=== PATIENT | male | born 1945 | race Caucasian/White ===

== ENCOUNTER 2016-06-15 10:39 | Emergency (ER) | payer MEDICARE ==
[2016-06-15] MEDS ORDERED: HYDROmorphone INJ* 1 MG/ML CARPUJECT SYRINGE ONE (12:07)
[2016-06-15] MEDS ORDERED: Ketorolac INJ* 30 MG/ML 1 ML VIAL ONE (12:07)
[2016-06-15] MEDS ORDERED: NS 0.9% 1000 ML* 1,000 ML IV ONE (12:25)
[2016-06-15] MEDS ORDERED: Ondansetron INJ* 2 MG/ML VIAL IV ONE (12:28)
[2016-06-15] MEDS ORDERED: HYDROmorphone INJ* 1 MG/ML CARPUJECT SYRINGE IV SLOW PU ONE ×2 (12:31→16:20)
[2016-06-15] MEDS ORDERED: Ketorolac INJ* 30 MG/ML 1 ML VIAL IV PUSH ONE (12:32)
[2016-06-15 12:38] LABS: Hematocrit 45 % (42-52); Mean Corpuscular HGB Conc 33 g/dl (31-36); Mean Corpuscular Hemoglobin 27 pg (27-31); Mean Corpuscular Volume 81 fL (80-94); Mean Platelet Volume 10 um3 (7.4-10.4); Red Blood Count 5.62 10^6/ul (4.0-5.4); Red Cell Distribution Width 14 % (10.5-15); White Blood Count 11.8 10^3/ul (3.5-10.8)
[2016-06-15 12:48] LABS: Urine Bacteria Absent (Absent); Urine Bilirubin Negative (Negative); Urine Glucose Negative (Negative); Urine Nitrite Negative (Negative)
[2016-06-15 12:50] LABS: Albumin 4.5 g/dL (3.2-5.2); BUN/Creatinine Ratio 26.2 (8-20); C Reactive Protein 75.37 mg/L (< 5.00); Calcium 10.1 mg/dL (8.6-10.3); EGFR African American 75.7 (>60); EGFR Non-African American 58.9 (>60); Globulin 3.6 g/dL (2-4); Magnesium 2.2 mg/dL (1.9-2.7); Potassium 4.1 mmol/L (3.5-5.0); Total Bilirubin 0.9 mg/dL (0.2-1.0); Total Protein 8.1 g/dL (6.4-8.9)
--- NOTE | 2016-06-15 13:42 | RAD ---
Indication: Left flank pain. CT of the abdomen and pelvis was performed without oral and IV contrast administration. Coronal and sagittal images were Moderate degree of left hydronephrosis and hydroureter noted. There are 2 calculi in the distal left ureter just at the ureterovesicular junction measuring 5 mm. More proximally is an additional distal ureteral stone measuring approximately 5 mm. Multiple parapelvic cysts are noted in the kidneys. Nonobstructing calculi are noted in the left kidney. These are located within the calyces. The lung bases demonstrate no pleural fluid, nodules or masses. Heart is of normal size without evidence of pericardial effusion. Liver is normal in size. Multiple low density lesions are noted in the left lobe of liver in the right lobe of liver. No intrahepatic duct dilatation is noted. The gallbladder demonstrates no calcified gallstones. No pericholecystic fluid or wall thickening. The spleen is normal in size no acute lesions are noted. The pancreas demonstrates no mass or pancreatic duct dilatation. Dilated loops of bowel are noted. The colon is filled with stool. CT of the pelvis demonstrates urinary bladder to be unremarkable. Marked enlargement of the prostate is noted. Seminal vesicles are unremarkable. No hernias are noted. IMPRESSION: THERE IS LEFT HYDRONEPHROSIS AND HYDROURETER. THERE ARE 2 CALCULI IN THE DISTAL LEFT URETER 1 AT THE URETEROVESICULAR JUNCTION MEASURING 5 MM AND ANOTHER ONE MORE PROXIMALLY MEASURING 5 MM. MULTIPLE PARAPELVIC RENAL CYSTS AND NONOBSTRUCTING CALCULUS OF THE LEFT KIDNEY IS NOTED. FINDINGS ARE NEW SINCE PREVIOUS EXAM OF 06/10/2016.
--- NOTE | 2016-06-15 17:26 | ED ---
Back Pain - HPI Summary HPI Summary: Patient arrives from Dr. Gill's office with complaint of worsening flank pain on left side. States pain has been present for 4 days. Now worsening and unbearable states it is 10/10. Known kidney stone per Dr Gill and now coming to ED for pain control and CT to show location of stones. Denies taking any medication at home and feels he has not passed the stones. No fever, JO, other other pain. Pain is localized to the flank area with radiation into the groin. Has not felt ill otherwise. - History of Current Complaint Chief Complaint: EDFlankPain Stated Complaint: LT SIDE FLANK PAIN Hx Obtained From: Patient Onset/Duration: Gradual Onset Onset/Duration: Started Days Ago Timing: Constant Back Pain Location: Is Discrete @ - left flank radiating to l groin - no abdominal pain Severity Initially: Moderate Severity Currently: Severe Pain Intensity: 10 Pain Scale Used: 0-10 Numeric Character: Sharp Aggravating Symptom(s): Movement Alleviating Symptom(s): Rest, Position Associated Signs And Symptoms: Positive: Flank Pain Related History: Similar Episode Dx As - previous kidney stones - Risk Factors AAA Risk Factors: Negative TAD Risk Factors: Negative Cauda Equina Risk Factors: Negative Epidural Abscess Risk Factors: Negative - Allergies/Home Medications Allergies/Adverse Reactions: Allergies Allergy/AdvReac Type Severity Reaction Status Date / Time Statins Allergy Joint Pain Verified 06/15/16 10:52 PMH/Surg Hx/FS Hx/Imm Hx Previously Healthy: Yes - Surgical History Surgery Procedure, Year, and Place: KNEE,SHOULDER Infectious Disease History: No Infectious Disease History: Denies: Traveled Outside the [place] in Last 30 Days - Social History Occupation: Unemployed Lives: With Family Alcohol Use: None Substance Use Type: Reports: None Smoking Status (MU): Former Smoker Review of Systems Constitutional: Negative Eyes: Negative Cardiovascular: Negative Respiratory: Negative Positive: Nausea Positive: flank pain, hematuria, pain Musculoskeletal: Negative Skin: Negative Neurological: Negative Psychological: Normal All Other Systems Reviewed And Are Negative: Yes Physical Exam Triage Information Reviewed: Yes Vital Signs On Initial Exam: Initial Vitals Temp Pulse Resp BP Pulse Ox 99.6 F 103 18 179/79 100 06/15/16 10:52 06/15/16 10:52 06/15/16 10:52 06/15/16 10:52 06/15/16 10:52 Vital Signs Reviewed: Yes Appearance: Positive: Well-Appearing, No Pain Distress, Well-Nourished Skin: Positive: Warm, Dry Head/Face: Positive: Normal Head/Face Inspection Eyes: Positive: Normal, EOMI, LINK ENT: Positive: Hearing grossly normal Neck: Positive: Supple, Nontender, No Lymphadenopathy Respiratory/Lung Sounds: Positive: Clear to Auscultation, Breath Sounds Present Cardiovascular: Positive: Normal Abdomen Description: Positive: Soft, CVA Tenderness (L) Bowel Sounds: Positive: Present Musculoskeletal: Positive: Normal, Strength/ROM Intact Neurological: Positive: Normal Psychiatric: Positive: Normal AVPU Assessment: Alert Diagnostics - Vital Signs Vital Signs Temp Pulse Resp BP Pulse Ox 06/15/16 16:34 16 06/15/16 16:00 145/80 06/15/16 15:30 83 131/73 96 06/15/16 15:00 79 118/66 96 06/15/16 14:30 81 125/65 96 06/15/16 14:00 88 129/70 96 06/15/16 13:30 87 132/70 96 06/15/16 13:00 86 94 06/15/16 12:37 16 06/15/16 12:30 134/79 06/15/16 12:00 95 180/92 99 06/15/16 11:33 95 98 06/15/16 11:32 168/98 06/15/16 10:52 99.6 F 103 18 179/79 100 - Laboratory Lab Results: Lab Results 06/15/16 06/15/16 06/15/16 Range/Units 11:37 11:37 11:37 WBC 11.8 H (3.5-10.8) 10^3/ul RBC 5.62 H (4.0-5.4) 10^6/ul Hgb 15.0 (14.0-18.0) g/dl Hct 45 (42-52) % MCV 81 (80-94) fL MCH 27 (27-31) pg MCHC 33 (31-36) g/dl RDW 14 (10.5-15) % Plt Count 135 L (150-450) 10^3/ul MPV 10 (7.4-10.4) um3 Neut % (Auto) 81.8 (38-83) % Lymph % (Auto) 11.4 L (25-47) % [place] % (Auto) 6.5 (1-9) % Eos % (Auto) 0 (0-6) % Baso % (Auto) 0.3 (0-2) % Absolute Neuts (auto) 9.7 H (1.5-7.7) 10^3/ul Absolute Lymphs (auto) 1.3 (1.0-4.8) 10^3/ul Absolute Monos (auto) 0.8 (0-0.8) 10^3/ul Absolute Eos (auto) 0 (0-0.6) 10^3/ul Absolute Basos (auto) 0 (0-0.2) 10^3/ul Absolute Nucleated RBC 0.01 10^3/ul Nucleated RBC % 0 Sodium 139 (133-145) mmol/L Potassium 4.1 (3.5-5.0) mmol/L Chloride 104 (101-111) mmol/L Carbon Dioxide 25 (22-32) mmol/L Anion Gap 10 (2-11) mmol/L BUN 32 H (6-24) mg/dL Creatinine 1.22 H (0.67-1.17) mg/dL Est GFR ( Amer) 75.7 (>60) Est GFR (Non-Af Amer) 58.9 (>60) BUN/Creatinine Ratio 26.2 H (8-20) Glucose 118 H (70-100) mg/dL Lactic Acid (0.5-2.0) mmol/L Calcium 10.1 (8.6-10.3) mg/dL Magnesium 2.2 (1.9-2.7) mg/dL Total Bilirubin 0.90 (0.2-1.0) mg/dL AST 20 (13-39) U/L ALT 18 (7-52) U/L Alkaline Phosphatase 61 (34-104) U/L Total Creatine Kinase 147 (10-223) U/L C-Reactive Protein 75.37 H (< 5.00) mg/L Total Protein 8.1 (6.4-8.9) g/dL Albumin 4.5 (3.2-5.2) g/dL Globulin 3.6 (2-4) g/dL Albumin/Globulin Ratio 1.3 (1-3) Lipase 23 (11.0-82.0) U/L Urine Color Red A Urine Appearance Cloudy Urine pH 7.0 (5-9) Ur Specific [place] 1.019 (1.010-1.030) Urine Protein 2+(100 mg/dl) H (Negative) Urine Ketones 1+ H (Negative) Urine Blood 3+ H (Negative) Urine Nitrate Negative (Negative) Urine Bilirubin Negative (Negative) Urine Urobilinogen Negative (Negative) Ur Leukocyte Esterase Negative (Negative) Urine WBC (Auto) Absent (Absent) Urine RBC (Auto) 3+(>10/hpf) H (Absent) Urine Bacteria Absent (Absent) Urine Glucose Negative (Negative) Urine Ascorbic Acid * H (Negative) 06/15/16 Range/Units 11:37 WBC (3.5-10.8) 10^3/ul RBC (4.0-5.4) 10^6/ul Hgb (14.0-18.0) g/dl Hct (42-52) % MCV (80-94) fL MCH (27-31) pg MCHC (31-36) g/dl RDW (10.5-15) % Plt Count (150-450) 10^3/ul MPV (7.4-10.4) um3 Neut % (Auto) (38-83) % Lymph % (Auto) (25-47) % Scre[place] % (Auto) (1-9) % Eos % (Auto) (0-6) % Baso % (Auto) (0-2) % Absolute Neuts (auto) (1.5-7.7) 10^3/ul Absolute Lymphs (auto) (1.0-4.8) 10^3/ul Absolute Monos (auto) (0-0.8) 10^3/ul Absolute Eos (auto) (0-0.6) 10^3/ul Absolute Basos (auto) (0-0.2) 10^3/ul Absolute Nucleated RBC 10^3/ul Nucleated RBC % Sodium (133-145) mmol/L Potassium (3.5-5.0) mmol/L Chloride (101-111) mmol/L Carbon Dioxide (22-32) mmol/L Anion Gap (2-11) mmol/L BUN (6-24) mg/dL Creatinine (0.67-1.17) mg/dL Est GFR ( Amer) (>60) Est GFR (Non-Af Amer) (>60) BUN/Creatinine Ratio (8-20) Glucose (70-100) mg/dL Lactic Acid 2.2 H* (0.5-2.0) mmol/L Calcium (8.6-10.3) mg/dL Magnesium (1.9-2.7) mg/dL Total Bilirubin (0.2-1.0) mg/dL AST (13-39) U/L ALT (7-52) U/L Alkaline Phosphatase (34-104) U/L Total Creatine Kinase (10-223) U/L C-Reactive Protein (< 5.00) mg/L Total Protein (6.4-8.9) g/dL Albumin (3.2-5.2) g/dL Globulin (2-4) g/dL Albumin/Globulin Ratio (1-3) Lipase (11.0-82.0) U/L Urine Color Urine Appearance Urine pH (5-9) Ur Specific [place] (1.010-1.030) Urine Protein (Negative) Urine Ketones (Negative) Urine Blood (Negative) Urine Nitrate (Negative) Urine Bilirubin (Negative) Urine Urobilinogen (Negative) Ur Leukocyte Esterase (Negative) Urine WBC (Auto) (Absent) Urine RBC (Auto) (Absent) Urine Bacteria (Absent) Urine Glucose (Negative) Urine Ascorbic Acid (Negative) Result Diagrams: 06/15/16 11:37 06/15/16 11:37 Lab Statement: Any lab studies that have been ordered have been reviewed, and results considered in the medical decision making process. - CT No standard instances CT Interpretation: Positive (See Comments) - 2 5mm stones - see CT results CT Interpretation Completed By: Radiologist Back Pain Course/Dx - Course Course Of Treatment: Dilaudid and toradol. Patient sent to CT. Shows two 5mm stones. Dr Gill consulted. Patient decision if want surgery or home with pain management until passage of stones. Patient agrees to home and pain management. Prior to leaving, pain at 10/10 again and given another 1mg of dilaudid. Pt stable at time of discharge. Will follow up with Dr Gill Assessment/Plan: Follow up with Dr. Gill - Diagnoses Provider Diagnoses: Kidney stone on left side Discharge - Discharge Plan Condition: Stable Disposition: HOME Prescriptions: Tamsulosin CAP* [Flomax CAP*] 0.4 mg PO DAILY #20 cap oxyCODONE/Acetamin 10/325(NF) [Percocet 10/325 (NF)] 1 tab PO Q6HR #20 tab MDD 4 Patient Education Materials: Kidney Stones (ED) Referrals: Sil Frederick MD [Primary Care Provider] - Brendan Gill MD [Medical Doctor] - Additional Instructions: Strain urine until you see both stones pass. Flomax once daily. Percoset as needed for pain Follow up with Dr Gill if symptoms persist or fail to improve. Come back to ED if fever develops, shortness of breath, JO or worsening pain not controlled with outpatient medication.
[2016-06-15 17:48] VITALS: BP 142/71
== END 2016-06-15 17:35 | disposition home or self-care (01) ==
LOC: ED 10:39
DX: N20.0 Calculus of kidney (principal); Z87.891 Personal history of nicotine dependence; Z87.442 Personal history of urinary calculi
CPT/HCPCS: 36415; 74176; 80053; 81003; 81015; 82550; 83605; 83690; 83735; 85025; 86140; 87040; 96360; 96365; 96374; 96375; 99283; J1170; J1885; J2405

== ENCOUNTER 2016-06-16 19:56 | Observation (INO) | payer MEDICARE ==
[2016-06-16] MEDS ORDERED: NS 0.9% 1000 ML* 1,000 ML IV ONE (20:41)
[2016-06-16] MEDS ORDERED: Ondansetron INJ* 2 MG/ML VIAL IV ONE (20:41)
[2016-06-16] MEDS ORDERED: fentaNYL* 50 MCG/ML 2 ML VIAL (100 MCG VIAL) IV ONE (20:41)
[2016-06-16 20:47] LABS: Hematocrit 40 % (42-52); Hemoglobin 12.9 g/dl (14.0-18.0); Mean Corpuscular HGB Conc 33 g/dl (31-36); Mean Corpuscular Hemoglobin 26 pg (27-31); Mean Corpuscular Volume 81 fL (80-94); Mean Platelet Volume 9 um3 (7.4-10.4); Red Blood Count 4.88 10^6/ul (4.0-5.4); Red Cell Distribution Width 14 % (10.5-15); White Blood Count 10.7 10^3/ul (3.5-10.8)
[2016-06-16 21:02] LABS: Albumin 4.1 g/dL (3.2-5.2); C Reactive Protein 83.95 mg/L (< 5.00); Calcium 9.4 mg/dL (8.6-10.3); EGFR Non-African American 55.2 (>60); Globulin 3.4 g/dL (2-4); Potassium 3.8 mmol/L (3.5-5.0); Total Bilirubin 0.6 mg/dL (0.2-1.0); Total Protein 7.5 g/dL (6.4-8.9)
--- NOTE | 2016-06-16 21:07 | RAD ---
Indication: LEFT flank pain. History of kidney stones. Obstructive uropathy traced to distal LEFT ureteral and ureterovesicular junction stones on CT of one day prior. Comparison: June 15, 2016 CT. Technique: Supine abdomen. Report: Large body habitus and bowel contents limits assessment. Vascular calcifications visualized at the bilateral kidneys. No definitive renal collecting system stones or suspicious calcifications along the course of the ureters evident even with correlation to the CT of one day prior. Mild gas distention of the colon. No dilated small bowel loops evident. Unremarkable soft tissue contours. IMPRESSION: Limited assessment due to large body habitus and bowel contents without conspicuous urolithiasis despite correlation with CT of one day prior.
[2016-06-16] MEDS ORDERED: fentaNYL* 50 MCG/ML 2 ML VIAL (100 MCG VIAL) IV SLOW PU ONE (21:17)
[2016-06-16 21:39] LABS: Urine Bacteria 1+ (Absent); Urine Bilirubin Negative (Negative); Urine Glucose Negative (Negative); Urine Nitrite Negative (Negative)
[2016-06-16] MEDS ORDERED: HYDROmorphone INJ* 1 MG/ML CARPUJECT SYRINGE IV SLOW PU ONE ×2 (21:48→23:36)
[2016-06-16] MEDS ORDERED: cefTRIAXone VIAL(*) 1,000 MG in NS 0.9% 50 ML* 50 ML IVPB ONE ×2 (21:49→22:07)
[2016-06-16] MEDS ORDERED: Gentamicin ADULT (*) 180 MG in NS 0.9% 100 ML* 100 ML IVPB ONE (22:06)
--- NOTE | 2016-06-16 22:16 | ED ---
Mike Dalton Anna, scribed for Zane Ricardo MD on 06/16/16 at 2048 . GI/ HPI - HPI Summary HPI Summary: Patient is a 70 y/o male coming to [facility] presenting with constant worsening left -sided flank pain that began five days ago. He describes the severity of the pain as 10/10 and worse than yesterday. He has experienced nausea and has seen blood in his urine. Denies vomiting. He was seen yesterday in the ED for the same symptoms and had a CT which revealed two renal calculi. The pain is not alleviated by Percocet. - History of Current Complaint Chief Complaint: EDFlankPain Time Seen by Provider: 06/16/16 20:40 Stated Complaint: POSSIBLE KIDNEY STONE Hx Obtained From: Patient Onset/Duration: Started Days Ago, Still Present, Worse Since - today Timing: Constant Severity: Moderate Current Severity: Moderate Pain Intensity: 10 Associated Signs and Symptoms: Positive: Nausea - Allergy/Home Medications Allergies/Adverse Reactions: Allergies Allergy/AdvReac Type Severity Reaction Status Date / Time Statins Allergy Joint Pain Verified 06/15/16 10:52 PMH/Surg Hx/FS Hx/Imm Hx Previously Healthy: No Cardiovascular History: Reports: Hx Hypertension History: Reports: Hx Benign Prostatic Hyperplasia, Hx Kidney Stones - Surgical History Surgery Procedure, Year, and Place: BILATERAL KNEES,SHOULDER Infectious Disease History: No Infectious Disease History: Denies: Traveled Outside the [place] in Last 30 Days - Family History Known Family History: Negative: Cardiac Disease, Hypertension, Diabetes - Social History Occupation: Retired Lives: With Family Alcohol Use: None Substance Use Type: Reports: None Smoking Status (MU): Former Smoker Review of Systems Positive: Nausea Positive: flank pain, hematuria All Other Systems Reviewed And Are Negative: Yes Physical Exam - Summary Physical Exam Summary: VITAL SIGNS: Reviewed. GENERAL: Patient is a well developed and nourished male who is lying comfortable in the stretcher. Patient is not in any acute respiratory distress. HEAD AND FACE: Normocephalic and atraumatic. EYES: PERRLA, EOMI x 2, No injected conjunctiva. EARS: Hearing grossly intact. Ear canals and tympanic membranes are WNL. MOUTH: Oropharynx within normal limits. NECK: Supple, trachea is midline, no adenopathy, no JVD. CHEST: Symmetric, no tenderness at palpation LUNGS: Clear to auscultation bilaterally. No wheezing or crackles. CVS: RRR,, S1 and S2 present, no murmurs or gallops appreciated. ABDOMEN: Soft, non-tender. No signs of distention. Positive bowel sounds. No rebound no guarding, and no masses palpated. No abdominal bruit or pulsations. Left CVAT's EXTREMITIES: FROM in all major joints, no edema, no cyanosis or clubbing. NEURO: Alert and oriented x 3. No acute neurological deficits. Speech is normal. SKIN: Dry and warm Vital Signs On Initial Exam: Initial Vitals Temp Pulse Resp BP Pulse Ox 99.1 F 96 18 192/92 100 06/16/16 20:04 06/16/16 20:04 06/16/16 20:04 06/16/16 20:04 06/16/16 20:04 Diagnostics - Vital Signs Vital Signs Temp Pulse Resp BP Pulse Ox 06/16/16 20:04 99.1 F 96 18 192/92 100 - Laboratory Lab Results: Lab Results 06/16/16 06/16/16 Range/Units 20:35 20:35 WBC 10.7 (3.5-10.8) 10^3/ul RBC 4.88 (4.0-5.4) 10^6/ul Hgb 12.9 L (14.0-18.0) g/dl Hct 40 L (42-52) % MCV 81 (80-94) fL MCH 26 L (27-31) pg MCHC 33 (31-36) g/dl RDW 14 (10.5-15) % Plt Count 115 L (150-450) 10^3/ul MPV 9 (7.4-10.4) um3 Neut % (Auto) 77.7 (38-83) % Lymph % (Auto) 13.0 L (25-47) % [place] % (Auto) 7.8 (1-9) % Eos % (Auto) 0.6 (0-6) % Baso % (Auto) 0.9 (0-2) % Absolute Neuts (auto) 8.3 H (1.5-7.7) 10^3/ul Absolute Lymphs (auto) 1.4 (1.0-4.8) 10^3/ul Absolute Monos (auto) 0.8 (0-0.8) 10^3/ul Absolute Eos (auto) 0.1 (0-0.6) 10^3/ul Absolute Basos (auto) 0.1 (0-0.2) 10^3/ul Absolute Nucleated RBC 0 10^3/ul Nucleated RBC % 0 Sodium 134 (133-145) mmol/L Potassium 3.8 (3.5-5.0) mmol/L Chloride 102 (101-111) mmol/L Carbon Dioxide 24 (22-32) mmol/L Anion Gap 8 (2-11) mmol/L BUN 31 H (6-24) mg/dL Creatinine 1.29 H (0.67-1.17) mg/dL Est GFR ( Amer) 71.0 (>60) Est GFR (Non-Af Amer) 55.2 (>60) BUN/Creatinine Ratio 24.0 H (8-20) Glucose 116 H (70-100) mg/dL Calcium 9.4 (8.6-10.3) mg/dL Total Bilirubin 0.60 (0.2-1.0) mg/dL AST 17 (13-39) U/L ALT 16 (7-52) U/L Alkaline Phosphatase 53 (34-104) U/L C-Reactive Protein 83.95 H (< 5.00) mg/L Total Protein 7.5 (6.4-8.9) g/dL Albumin 4.1 (3.2-5.2) g/dL Globulin 3.4 (2-4) g/dL Albumin/Globulin Ratio 1.2 (1-3) Result Diagrams: 06/16/16 20:35 06/16/16 20:35 Lab Statement: Any lab studies that have been ordered have been reviewed, and results considered in the medical decision making process. - Radiology XR Abd Xray Interpretation: No Acute Changes Radiology Interpretation Completed By: Radiologist - IMPRESSION: Limited assessment due to large body habitus and bowel contents without conspicuous urolithiasis despite correlation with CT of one day prior. GIGU Course/Dx - Course Assessment/Plan: Patient is a 70 y/o male coming to [facility] presenting with constant worsening left-sided flank pain that began five days ago. He describes the severity of the pain as 10/10 and worse than yesterday. He has experienced nausea and has seen blood in his urine. Denies vomiting. He was seen yesterday in the ED for the same symptoms and had a CT which revealed two renal calculi. KUB IMPRESSION: Limited assessment due to large body habitus and bowel contents without. conspicuous urolithiasis despite correlation with CT of one day prior. Abdominal and pelvic CT impression: Left hydronephrosis and hydroureter. 2 5 mm stones in the left ureter. In ED course he was given IV fluids, Fentanyl x 2 and Zofran. Blood work wnl except for RI and increase CRP 83.9. Patient continue to have pain therefore he was given Dilaudid 1 mg. He was also given Rocephin 2 gm. I discussed the case with Dr. Calle and he recommends to give Gentamicin 180 mg x 1. And admit to the hospitalist. I discuss my physical exam, findings and test results with Dr. Das from the hospitalist services and she agrees to admit patient to his services. Patient is hemodynamically stable alert and oriented x 3. - Diagnoses Differential Diagnoses - Male: Pyelonephritis, Renal Calculi, Renal Colic, Urinary Tract Infection Provider Diagnoses: Ureteral stone, UTI (urinary tract infection), Renal colic on right side - Physician Notifications Discussed Care Of Patient With: Dr. Calle (urologist) at 20:52. He wants to see the results of the bloodwork. Dr. Calle (urologist) at 22:04. He recommends admitting the patient to the hospitalist. Dr. Rooney (hospitalist) at 22:09. Agrees to admit patient. Discharge - Discharge Plan Condition: Stable Disposition: ADMITTED TO [facility] Referrals: Sil Frederick MD [Primary Care Provider] - The documentation as recorded by the Mike poe Anna accurately reflects the service I personally performed and the decisions made by me, Zane Ricardo MD.
[2016-06-17] MEDS ORDERED: Metronidazole (TOPICAL)(NF) 45 GM TUBE TOPICAL PRN (01:13)
[2016-06-17] MEDS ORDERED: Ipratropium HFA INHALER(NF) (ALTERNATIVE = NEBS) INH PRN (01:13)
[2016-06-17] MEDS ORDERED: Acetaminophen TAB* 325 MG PO PRN (01:13)
[2016-06-17] MEDS ORDERED: Ondansetron INJ* 2 MG/ML VIAL IV PRN (01:15)
[2016-06-17] MEDS ORDERED: Senna TAB PO PRN (01:15)
[2016-06-17] MEDS ORDERED: Polyethylene Glycol 3350* 17 GM PACKET PO PRN (01:15)
[2016-06-17] MEDS ORDERED: NS 0.9% 1000 ML* 1,000 ML IV SCH (01:15)
[2016-06-17] MEDS ORDERED: Docusate CAP* 100 MG PO PRN (01:15)
[2016-06-17] MEDS: HYDROmorphone INJ* 1 MG/ML CARPUJECT SYRINGE IV SLOW PU PRN ×2 (01:30→05:00)
[2016-06-17] MEDS: oxyCODONE/Acetamin 5/325 MG* TAB PO SCH ×2 (05:22→11:12)
[2016-06-17] MEDS: oxyCODONE TAB* 5 MG TAB PO SCH ×2 (05:22→11:12)
[2016-06-17] MEDS ORDERED: Heparin VIAL(*) 5000 UNITS/ML VIAL (FIVE THOUSAND) SUBCUT SCH (06:00)
--- NOTE | 2016-06-17 07:05 | HP ---
HISTORY AND PHYSICAL: DATE OF ADMISSION: CHIEF COMPLAINT: Back pain. HISTORY OF PRESENT ILLNESS: The patient is a 70-year-old who says several days ago he was started with back pain on the left side. He went to see Dr. Gill after his urine looked like tea. He did an ultrasound in his office and was concerned that there might be a stone. He had a CAT scan of his abdomen and pelvis. He was supposed to see Dr. Gill again on Tuesday but the pain became too intense so he came to the ER. It is worst and it was 10/10 in severity. It is on the left flank side and does not radiate. He has nausea and vomiting as well. He does not know if he had fever or chills. PAST MEDICAL HISTORY: Significant for hypertension, hyperlipidemia, osteoarthritis, BPH. PAST SURGICAL HISTORY: Significant for bilateral knee arthroscopies, rotator cuff surgery, cataract surgery bilaterally, umbilical hernia repair, right knee operation for fractured tibial tuberosity. CURRENT MEDICATIONS: 1. Metronidazole topical at bedtime. 2. Irbesartan 150 mg daily. 3. Finasteride 5 mg daily. 4. B12 1000 mcg daily. 5. Cholecalciferol 2000 units daily. 6. Aspirin 81 mg daily. 7. Ascorbic acid 1000 mg daily. 8. Fluticasone two sprays both nares daily. 9. Atrovent 2 puffs every 6 hours as needed. 10. Percocet one tablet every six hours as needed. 11. Tylenol one tab as directed. 12. Tamsulosin 0.4 mg daily. ALLERGIES: He has an allergy/adverse reaction to STATINS. FAMILY HISTORY: Mother at 81 of a motor vehicle accident. Father he never really knew. SOCIAL HISTORY: He quit tobacco 13 years ago. No alcohol or recreational drug use. He is a retired breakfast manager. He is . His Lisbeth Bolaños is his healthcare proxy. He has four children. REVIEW OF SYSTEMS: A 14-point review of systems was completed with the patient. All pertinent positives and negatives are in the history of present illness. Otherwise, it is negative. PHYSICAL EXAMINATION GENERAL: Pleasant gentleman lying in bed, in no acute distress. VITAL SIGNS: Temperature is 97.8 degrees, heart rate 73 beats per minute, respiratory rate 12 breaths per minute, pulse ox 99%, blood pressure 132/71. HEENT: Normocephalic, atraumatic. Pupils are equal, round, reactive to light. Moist mucous membranes. NECK: Supple. No JVD, bruits, palpable thyroid, or lymphadenopathy. CHEST: Clear to auscultation and percussion bilaterally. CARDIOVASCULAR: S1, S2 appreciated. ABDOMEN: Positive bowel sounds in all 4 quadrants. Soft, nontender, and nondistended. EXTREMITIES: No cyanosis, clubbing, or edema. +2 pulses bilaterally. NEURO: Alert and oriented x3, moves all extremities. SKIN: No rashes or abnormalities. DIAGNOSTIC STUDIES AND LABORATORY DATA: White count 10.7, hemoglobin 12.9, hematocrit 40, platelets 115. Sodium 134, potassium 2.8, chloride 102, CO2 24, BUN 31, creatinine 1.29, glucose is 116. Urinalysis has trace leukocyte esterase, +3 wbc's, +3 rbc's. Abdominal x-ray shows limited assessment due to large body habitus and bowel incontinence without conspicuous urolithiasis despite correlation with CT one day prior. CT of the abdomen and pelvis on 06/15/16. Impression: Left hydronephrosis, hydroureter. There are two calculi in the distal left ureter at the ureterovesical junction measuring 5 mm and other one more proximally measuring 5 mm, multiple pelvic renal cysts and nonobstructing calculus in the left kidney is noted. ASSESSMENT AND PLAN: 1. Nephrolithiasis with hydronephrosis. The patient is to go to the OR likely tomorrow for stent placement. For now, I will place him on Rocephin 1 g IV q. day. Normal saline at 100 cc an hour. Dilaudid p.r.n. for pain. 2. Hypertension, stable. Continue current regimen. 3. BPH, stable. Continue Flomax and finasteride. 4. FEN. N.p.o. after midnight. 5. DVT prophylaxis. Heparin subcu. 6. The patient is a full code. TIME SPENT: Over 75 minutes was spent on this H and P, more than 40 minutes was spent in direct [id number] contact with the patient in evaluation, physical exam, counseling, and coordination of care. CC: Dr. Frederick; Dr. Gill* [id number]/[facility] #: [id number] [facility]
[2016-06-17] MEDS ORDERED: HYDROmorphone INJ* 2 MG/ML CARPUJECT SYRINGE IV SLOW PU PRN ×2 (07:23→08:10)
[2016-06-17] MEDS ORDERED: Tamsulosin CAP* 0.4 MG PO SCH (09:00)
[2016-06-17] MEDS ORDERED: Ascorbic Acid TAB* 500 MG PO SCH (09:00)
[2016-06-17] MEDS ORDERED: Finasteride TAB* 5 MG PO SCH (09:00)
[2016-06-17] MEDS ORDERED: Losartan TAB* 25 MG PO SCH (09:00)
[2016-06-17] MEDS ORDERED: KETAMINE HCL* 50 MG/ML 10 ML VIAL ONE (10:52)
[2016-06-17] MEDS ORDERED: Midazolam* 1 MG/ML 5 ML VIAL (5 MG) ONE (10:52)
[2016-06-17] MEDS ORDERED: fentaNYL* 50 MCG/ML 2 ML VIAL (100 MCG VIAL) ONE (10:52)
[2016-06-17] MEDS ORDERED: Iohexol 180 (CONTRAST) 10 ML SDV IV ONE (11:12)
[2016-06-17] MEDS ORDERED: cefTRIAXone(*) 2 GM ADDV.VIAL IVPB ONE (11:36)
[2016-06-17] MEDS ORDERED: Propofol* 10 MG/ML 20 ML BTL IV PUSH ONE (12:06)
[2016-06-17] MEDS ORDERED: Ondansetron INJ* 2 MG/ML VIAL ONE (12:06)
[2016-06-17] MEDS ORDERED: Dexamethasone IV* 4 MG/ML 1 ML (4 MG) ONE (12:06)
[2016-06-17] MEDS ORDERED: fentaNYL* 50 MCG/ML 2 ML VIAL (100 MCG VIAL) IV PRN (12:09)
[2016-06-17] MEDS ORDERED: PROCHLORPERAZINE INJ 5 MG/ML 2 ML VIAL IV PRN (12:09)
[2016-06-17] MEDS ORDERED: Morphine INJ* 2 MG/ML 1 ML CARPUJECT IV PRN (12:09)
[2016-06-17] MEDS ORDERED: Famotidine IV* 10 MG/ML 2 ML (20 mg) ONE (12:09)
[2016-06-17] MEDS ORDERED: oxyCODONE/Acetamin 5/325 MG* TAB PO PRN (12:09)
[2016-06-17] MEDS ORDERED: Phenylephrine IV* 40 MCG/ML 10 ML SYRINGE ONE (12:11)
[2016-06-17] MEDS ORDERED: Buffered Lidocaine 1% SYR 3ML* 3 ML/SYR SYRINGE INTRADERM ONE (12:13)
[2016-06-17] MEDS ORDERED: Flumazenil* 0.1 MG/ML 5 ML MDV ONE (12:38)
--- NOTE | 2016-06-17 13:48 | RAD ---
Indication: Left renal calculus. Fluoroscopic services provided for referring physician. 16 seconds of fluoroscopy time was used. There is placement of a left ureteral stent. 10 spot images demonstrates mild left hydronephrosis. IMPRESSION: Fluoroscopic services provided for referring physician.
[2016-06-17 15:00] VITALS: BP 128/64
--- NOTE | 2016-06-17 20:46 | OP ---
DATE OF OPERATION: 06/17/16 - ROOM #417 DATE OF : 47 SURGEON: Brendan Gill MD ANESTHESIOLOGIST: Jose G Haro MD ANESTHESIA: General. PRE-OP DIAGNOSES: 1. Left renal colic. 2. Left renal calculus. 3. Distal left ureteral calculi. POST-OP DIAGNOSES: 1. Left renal colic. 2. Left renal calculus. 3. Distal left ureteral calculi. OPERATIVE PROCEDURE: 1. Cystoscopy. 2. Left ureteroscopy and basketing of three distal left ureteral calculi (6 mm , 5 mm, 3 mm). 3. Left retrograde pyelography and placement of left ureteral stent (6-Thai). INDICATIONS FOR PROCEDURE: Mr. Bolaños is a 70-year-old white male who is a stone former and has prostate enlargement and bladder outlet obstruction. He presented to the emergency room 2 days ago with symptoms of left renal colic. Non-contrast CT of the abdomen and pelvis showed a 2 cm nonobstructing calculus in the lower infundibulum of the left kidney and two distal left ureteral calculi measuring about 5 mm each. The patient was managed conservatively in the emergency room and he did well and his pain resolved and was discharged to home on pain medication and on tamsulosin. He presented early this morning to the emergency room with severe left renal colic. He did not have any fever or chills. It was difficult controlling his pain with IV narcotics. The patient is taken to the operating room for the above procedure. PATHOLOGY AT CYSTOSCOPY: The penile and bulbar urethrae looked normal. The prostatic urethra measured about 4 cm in length and there was significant obstruction by trilobar hyperplasia of the prostate with a prominent median lobe. The prostatic urethra was vascular and bled easily to instrumentation. Examination of the bladder showed significant degree of edema and hyperemia in the left trigone surrounding the left ureteral orifice. The right orifice looked normal. The bladder showed diffuse trabeculations, but there were no bladder lesions seen. Upon left ureteroscopy, there was edema of the distal ureter. Three calculi were noted measuring in size between 6 mm and 3 mm. The calculi were yellowish greyish in appearance. DESCRIPTION OF PROCEDURE: After successful general anesthesia, the patient was placed in the dorsal lithotomy position and was prepped and draped in the usual manner. Cystoscopy was performed. The bladder was carefully inspected and the above findings were noted. A flexible tip guidewire was then introduced into the left orifice and positioned in the area of the renal pelvis. The cystoscope was removed and 6.5 semirigid ureteroscope was then introduced inside the bladder. A flexible tip basket was introduced through the port of the ureteroscope and the flexible tip was introduced into the left ureteral orifice and was used as guide to introduce the ureteroscope inside the ureter. This was done in an atraumatic way. The calculi were identified. They were felt to be amenable to basketing without laser lithotripsy. The stones were engaged one at a time and extracted without difficulty and sent for stone analysis. Final ureteroscopy showed no residual stone all the way to the mid ureter. Retrograde pyelography was then performed. A size 6-Thai stent was then placed with the proximal end coiling in the renal calculus and the distal end coiling inside the bladder. There was good drainage of contrast from the kidney and no extravasation. A size 18-Thai Feng catheter was then placed inside the bladder. The patient tolerated the procedure well and left the operating room in good condition. The plan is to see the patient in the office next week and the stent will be removed. The patient will need definitive treatment for the residual renal calculus. CC: Sil Frederick MD* [id number]/NELLY #: [id number] CHANDLER
[2016-06-17] MEDS ORDERED: cefTRIAXone VIAL(*) 1,000 MG in NS 0.9% 50 ML* 50 ML IVPB SCH (22:00)
--- NOTE | 2016-06-18 08:36 | DS ---
DISCHARGE SUMMARY: DATE OF ADMISSION: 06/16/16 DATE OF DISCHARGE: 06/17/16 PRIMARY CARE PROVIDER: Sil Frederick MD, and does need a followup. PRIMARY DIAGNOSIS: Hydronephrosis. SECONDARY DIAGNOSIS: Nephrolithiasis. The patient was brought to the emergency room with Urology for removal of stone. HISTORY OF PRESENT ILLNESS: A 70-year-old man presented to the hospital with severe abdominal pain, found with obstructing nephrolithiasis. Seen in consultation with Dr. Gill who brought him to the OR, suspected to have removed stones, but discharged directly from the OR. This author does not have any of the records from the OR at this time; he was also not involved in the discharge process. Therefore, medication reconciliation not performed prior to discharge nor followup appointments made by this author. Unfortunately, this author was notified after patient was already discharged and had left the hospital. At followup, please make sure the patient discharged on appropriate medications as again I did not participate in medication reconciliation. [id number]/[facility] #: [id number] CHANDLER
== END 2016-06-17 16:30 | disposition home or self-care (01) ==
LOC: ED 19:56 → MED 06-17 01:32
PROVIDERS: ADMIT Internal Medicine; ATTEND Urology
PROC: 0T778DZ Dilation of Left Ureter with Intraluminal Device, Via Natural or Artificial Opening Endoscopic (ICD-10-PCS; 2016-06-17)
PROC: 0TC78ZZ Extirpation of Matter from Left Ureter, Via Natural or Artificial Opening Endoscopic (ICD-10-PCS; principal; 2016-06-17 11:00)
DX: N13.2 Hydronephrosis with renal and ureteral calculous obstruction (principal); I10 Essential (primary) hypertension; E78.5 Hyperlipidemia, unspecified; N40.0 Benign prostatic hyperplasia without lower urinary tract symptoms; Z79.82 Long term (current) use of aspirin; Z79.899 Other long term (current) drug therapy; Z87.891 Personal history of nicotine dependence
CPT/HCPCS: 36415; 74000; 74420; 80053; 81003; 81015; 82365; 85025; 86140; 87086; 88300; 96365; 96366; 96367; 96375; 96376; 99284; A9270-GY; C1876; G0378; J0696; J1100; J1170; J1580; J2250; J2405; J2704; J3010

== ENCOUNTER 2016-11-29 11:06 | Inpatient (IN) | payer MEDICARE ==
[2016-11-29] MEDS ORDERED: Ticagrelor* 90 MG TAB PO ONE (11:08)
[2016-11-29] MEDS ORDERED: Heparin for STEMI(*) 5,000 UNITS/ML 1 ML VIAL IV ONE (11:08)
[2016-11-29] MEDS ORDERED: Midazolam* 1 MG/ML 5 ML VIAL (5 MG) ONE (11:22)
[2016-11-29] MEDS ORDERED: fentaNYL* 50 MCG/ML 2 ML VIAL (100 MCG VIAL) ONE (11:22)
[2016-11-29 11:23] LABS: Hematocrit 38 % (42-52); Hemoglobin 12.1 g/dl (14.0-18.0); Mean Corpuscular HGB Conc 32 g/dl (31-36); Mean Corpuscular Hemoglobin 27 pg (27-31); Mean Corpuscular Volume 84 fL (80-94); Mean Platelet Volume 9 um3 (7.4-10.4); Red Blood Count 4.54 10^6/ul (4.0-5.4); Red Cell Distribution Width 14 % (10.5-15)
[2016-11-29] MEDS ORDERED: Bivalirudin(*) 250 MG VIAL ONE ×2 (11:29→11:59)
[2016-11-29 11:47] LABS: Albumin 3.4 g/dL (3.2-5.2); BUN/Creatinine Ratio 24.3 (8-20); Calcium 8.6 mg/dL (8.6-10.3); EGFR African American 91.8 (>60); EGFR Non-African American 71.4 (>60); Globulin 3.2 g/dL (2-4); Potassium 4.2 mmol/L (3.5-5.0); Total Bilirubin 0.5 mg/dL (0.2-1.0); Total Protein 6.6 g/dL (6.4-8.9)
[2016-11-29 11:58] LABS: Troponin I 21.15 ng/mL (<0.04)
[2016-11-29] MEDS ORDERED: Nitroglycerin TAB 0.4 MG* 0.4 MG TAB SL PRN (12:27)
[2016-11-29] MEDS ORDERED: Lidocaine 1% INJ* 10 MG/ML 30 ML SDV ONE (12:28)
[2016-11-29] MEDS ORDERED: Heparin 2 UNITS/ML IVPREMIX* 2,000 ML IV ONE (12:28)
[2016-11-29] MEDS ORDERED: Iohexol 350 (CONTRAST) 200 ML MDV IV ONE (12:29)
[2016-11-29] MEDS ORDERED: NS 0.9% 1000 ML* 1,000 ML IV SCH (12:30)
[2016-11-29] MEDS ORDERED: nitroGLYCERIN DRIP* 250 ML ONE (12:30)
[2016-11-29] MEDS ORDERED: Iodixanol* (CONTRAST) 320 MG/ML 100 ML SDV ONE (12:35)
[2016-11-29] MEDS ORDERED: Carvedilol TAB* 3.125 MG PO ONE (13:13)
[2016-11-29] MEDS ORDERED: Losartan TAB* 25 MG PO ONE (13:30)
--- NOTE | 2016-11-29 14:12 | HP ---
H&P (Free Text) History and Physical: CRITICAL CARE MEDICINE DATE: 11/29/16 TIME: 1200 PRIMARY CARE PROVIDER: Yoly REFERRING PROVIDER: Alphonse REASON/CHIEF COMPLAINT: sob, STEMI without culpruit HISTORY OF PRESENT ILLNESS: 71M presenting with acute sob and STEMI in the field , taken to cardiac cath rn, with relatively same coronary disease burden from cath Jun 2016 without a culpruit lesion. He does not report chest pain but does still have feeling of lack of full inhalation. Pt explains that it started 3 days ago when he utilized his cpap pillows and awoke with sob. Every night since it seemed to worsen and this am he was still unable to "catch his breath". He is now post cath. Did receive 4000units heparin precath. He feels ok other then the sob. echo and cxr pending. REVIEW OF SYSTEMS: As per HPI. seeing "prisims" from R eye which he gets occasionally. PAST MEDICAL HISTORY: As per HPI. htn, hyperlipidemia, bph, OA, mild copd, mild tyree on cpap, b/l knee replacement, cataract removal MEDICATIONS: Reviewed. ALLERGIES: Statins, lisinopril -cough SOCIAL HISTORY: Reviewed. , worked at [employer], quit tob ~14years ago. quit caffeine several months ago. FAMILY HISTORY: Noncontributory at present. PHYSICAL EXAM: Vital Signs: Reviewed. Hr 90. BP 120/80s. RR teens. RA Neurologic: awake, communicating, holds capacity HEENT: Cardiovascular: Respiratory: deep excursion, dec bs on R. no rales nor wheeze Abdomen: obese, soft, no masses Extremities: coolish, chronic scarring, neg homans Access: piv; post groin cath LABS: Reviewed. IMAGING: Reviewed. MEDICATIONS: Reviewed. ASSESSMENT: 71 M Presenting with STEMI in anterior without culprit lesion on cath Echo quick look without R heart strain to indicate a large PE burden leading to his cardiac enzyme elevations, CE likely trending down: question is this more demand ischemia or stress induced cardiomyopathy with underlying exacerbations from his tyree, lvh, and multiform PVCs, or other arrhythmia burdens perhaps even. Certainly not a type 1 burden at present We will trend enzymes: if they would surprisingly elevate or sob dynamics change , we could still consider space burden from PE and could consider anticoag and CT study tomorrow (waiting post cath dye) but again to his enzyme burden this would be less likely. Placed on NC O2 currently to eval sx. CXR pending and can perhaps help although nothing showing infective burden at present. Can resume his cardiac regimen per cards (asa, bb, arb) and will follow up. Would like to eval his dyanmics with slower hr. Continue his nocturnal cpap. prn mdi Supportive and preventative care as ordered. Disposition: ICU monitoring, acuity 3, will follow Code Status: Full Critical Care Time: 40min FJuan Parson DO
--- NOTE | 2016-11-29 14:30 | ECHO ---
Patient: LJ CLAY [facility] Rec#: [id number] : 1945 Date: 11/29/2016 Age: 71y Height: 182.88 cm / 72.0 in Weight: 112.49 kg / 247.9 lbs Sex: M BSA: 2.33 Room#: ICU-3 Admit Date#: 11/29/2016 Type: Inpatient Referring: Felipe Cunha MD Reading: Abhijeet Contreras MD Behaviour Support Teacher: Clare Johnson [facility] CC: Sil Frederick MD Transthoracic Echocardiogram Indication: Acute SOB BP: 124/82 HR: 88 Rhythm: NSR Findings History: Acute SOB,mild COPD,CORAL with CPAP rx,HLD. Technical Comments: The study quality is good. Completed at 1427. Left Ventricle: The left ventricular chamber size is normal. Moderate to severe concentric left ventricular hypertrophy is observed. There is global hypokinesis of the left ventricle with minor regional variation. There is moderately decreased left ventricular systolic function. The estimated ejection fraction is 35-40%. There is no consistent Doppler evidence of clinically significant diastolic dysfunction. Left Atrium: The left atrial chamber size is normal. Right Ventricle: The right ventricular cavity size is normal. The right ventricular global systolic function is mildly to moderately reduced. Right Atrium: The right atrial cavity size is normal. Aortic Valve: The aortic valve is trileaflet. There is mild aortic regurgitation. There is no evidence of aortic stenosis. Mitral Valve: The mitral valve leaflets appear normal. There is mild to moderate mitral regurgitation. There is no evidence of mitral stenosis. Tricuspid Valve: The tricuspid valve leaflets are normal. There is no evidence of tricuspid valve regurgitation. Unable to estimate the right ventricular systolic pressure. There is no tricuspid stenosis. Pulmonic Valve: The pulmonic valve appears normal. There is no evidence of pulmonic regurgitation. There is no pulmonic stenosis. Pericardium: There is no pericardial effusion. A pericardial fat pad is visualized. Aorta: There is no dilatation of the ascending aorta. The aortic arch is not well visualized. There is mild dilatation of the aortic root. Pulmonary Artery: The main pulmonary artery appears normal. Venous: The inferior vena cava is dilated. There is less than 50% respiratory change in the inferior vena cava dimension. Conclusions Moderate to severe concentric left ventricular hypertrophy is observed. There is moderately decreased left ventricular systolic function. The estimated ejection fraction is 30-35%. There is global hypokinesis of the left ventricle with minor regional variation. The right ventricular global systolic function is mildly to moderately reduced. There is mild aortic regurgitation. There is mild to moderate mitral regurgitation. There is no evidence of tricuspid valve regurgitation. Unable to estimate the right ventricular systolic pressure. There is no pericardial effusion. Compared to study of 09/21/16, the LV and RV function are worse Valve function is the same Measurements Name Value Normal Range RVIDd (AP) 2D 2.2 cm (0.9 - 2.6) RVDdMajor (2D) 3.2 cm (2.2 - 4.4) RAd ISD 4CH 4.7 cm (3.4 - 4.9) RA (A4C)W 4.2 cm (2.9 - 4.6) IVSd (2D) 1.6 cm (0.6 - 1) LVPWd (2D) 1.7 cm (0.6 - 1) LVIDd (2D) 4.4 cm (3.6 - 5.4) LVIDs (2D) 3.6 cm - LV FS (2D) 18 % (25 - 45) Aortic Annulus 2.3 cm (1.4 - 2.6) Ao root diameter (2D) 3.8 cm (2.1 - 3.5) Ascending Ao 3.3 cm (2.1 - 3.4) LA dimension (AP) 2D 3.3 cm (2.3 - 3.8) LAd ISD 4CH 6.1 cm (2.9 - 5.3) LA ISD 4CH W 3.8 cm (2.5 - 4.5) Name Value Normal Range LA ESV SP 4CH (A/L) 50 ml - LA ESV SP 2CH (A/L) 55 ml - LA ESV BP (A/L) 55 ml - LA ESV BP (A/L) index 23.6 ml/m2 - LA ESV SP 4CH (MOD) 44 ml - LA ESV SP 2CH (MOD) 56 ml - Name Value Normal Range MV E-wave Vmax 0.3 m/sec - MV deceleration time 142 msec - MV A-wave Vmax 0.9 m/sec - MV E:A ratio 0.36 ratio - LV septal e' Vmax 0.11 m/sec - LV lateral e' Vmax 0.06 m/sec - LV E:e' septal ratio 2.72 ratio - LV E:e' lateral ratio 5 ratio - Name Value Normal Range AV Vmax 1.4 m/sec - AV VTI 24 cm - AV peak gradient 7.25 mmHg - AV mean gradient 3.49 mmHg - LVOT Vmax 0.9 m/sec - LVOT VTI 13.7 cm - LVOT peak gradient 3.56 mmHg - LVOT mean gradient 1.53 mmHg - AR PHT 559 msec - AR peak gradient 73.69 mmHg - Name Value Normal Range IVC diameter 2.6 cm - Name Value Normal Range PV Vmax 0.7 m/sec - PV peak gradient 1.74 mmHg -
[2016-11-29 14:43] LABS: C Reactive Protein 29.35 mg/L (< 5.00)
--- NOTE | 2016-11-29 14:54 | RAD ---
INDICATION: Short of breath COMPARISON: Chest x-ray June 14, 2015 TECHNIQUE: An AP portable view obtained at 1450 hours is submitted. FINDINGS: Bones/Soft Tissues: There are no acute bony findings. Cardiomediastinal: The cardiac silhouette is mildly prominent. There is mild interstitial congestion. Lungs: There are no infiltrates. Pleura: There are no pleural effusions. Other: None IMPRESSION: MILD CARDIOMEGALY WITH MILD INTERSTITIAL CONGESTION.
[2016-11-29 16:02] LABS: Erythrocyte Sed Rate 40 mm/Hr (0-40)
--- NOTE | 2016-11-29 16:06 | ED ---
Summer Dalton Thomas, scribed for Edgard Hinton MD on 11/29/16 at 1111 . HPI Chest Pain - HPI Summary HPI Summary: Pt is a 71 y/o M BIBA c/o CP. The pt had been having upper respiratory Sx for a couple days accompanied by CP, so he saw his PCP in [place] this AM. At his PCP, an EKG was performed that revealed ST elevation in the anterolateral leads. An ambulance was called that transported the pt to [facility] ED. The pre- hospital EKG from the ambulance also showed ST elevation in anterolateral leads. SYSTEMS PROTECTION TECHNICIAN of the pt, a STEMI alert was called at 10:57. There was no EKG performed in the ED. A STEMI team led by Dr. Cunha met the pt in the ED. In the ED, the pt was given Heparin and Brilinta. At 11:16, the pt was moved via EMS stretcher to [facility] for a STAT catheterization. - History of Current Complaint Time Seen by Provider: 11/29/16 11:08 Hx Obtained From: Patient, EMS Onset/Duration: Started Hours Ago - this AM, Still Present Timing: Constant Associated Signs and Symptoms: Positive: Chest Pain, Other: - POS: upper respiratory Sx - Additional Pertinent History Primary Care Physician: [id number] - Allergy/Home Medications Allergies/Adverse Reactions: Allergies Allergy/AdvReac Type Severity Reaction Status Date / Time Statins Allergy Joint Pain Verified 11/29/16 11:17 PMH/Surg Hx/FS Hx/Imm Hx Previously Healthy: No Cardiovascular History: Reports: Hx Hypertension History: Reports: Hx Benign Prostatic Hyperplasia, Hx Kidney Stones - Surgical History Surgery Procedure, Year, and Place: BILATERAL KNEES,SHOULDER - Family History Known Family History: Negative: Cardiac Disease, Hypertension, Diabetes - Social History Alcohol Use: None Substance Use Type: Reports: None Smoking Status (MU): Former Smoker Review of Systems Constitutional: Negative Negative: Fever Eyes: Negative ENT: Negative Positive: Chest Pain Respiratory: Negative Gastrointestinal: Negative Genitourinary: Negative Musculoskeletal: Negative Skin: Negative Neurological: Negative Psychological: Normal All Other Systems Reviewed And Are Negative: Yes Physical Exam - Summary Physical Exam Summary: Gen: mildly ill-appearing, no pain distress Skin: warm, color, dry Head: normal Eyes: EOMI, LINK ENT: normal Neck: supple, nontender Resp: CTA, breath sounds present Cardio: RRR Abd: soft, nontender Bowel: present Musc: normal, strength/ROM intact Neuro: normal, sensory/motor intact, A&O x3 Psych: affect/mood appropriate Triage Information Reviewed: Yes Vital Signs On Initial Exam: Initial Vitals Temp Pulse Resp BP Pulse Ox 97.7 F 91 12 123/81 98 11/29/16 12:25 11/29/16 12:25 11/29/16 12:25 11/29/16 12:25 11/29/16 12:25 Vital Signs Reviewed: Yes Diagnostics - Laboratory Lab Results: Lab Results 11/29/16 11/29/16 11/29/16 Range/Units 11:11 11:11 11:11 WBC 6.0 (3.5-10.8) 10^3/ul RBC 4.54 (4.0-5.4) 10^6/ul Hgb 12.1 L (14.0-18.0) g/dl Hct 38 L (42-52) % MCV 84 (80-94) fL MCH 27 (27-31) pg MCHC 32 (31-36) g/dl RDW 14 (10.5-15) % Plt Count 150 (150-450) 10^3/ul MPV 9 (7.4-10.4) um3 Neut % (Auto) 68.3 (38-83) % Lymph % (Auto) 18.7 L (25-47) % [place] % (Auto) 10.3 H (1-9) % Eos % (Auto) 2.3 (0-6) % Baso % (Auto) 0.4 (0-2) % Absolute Neuts (auto) 4.1 (1.5-7.7) 10^3/ul Absolute Lymphs (auto) 1.1 (1.0-4.8) 10^3/ul Absolute Monos (auto) 0.6 (0-0.8) 10^3/ul Absolute Eos (auto) 0.1 (0-0.6) 10^3/ul Absolute Basos (auto) 0 (0-0.2) 10^3/ul Absolute Nucleated RBC 0 10^3/ul Nucleated RBC % 0 ESR 40 (0-40) mm/Hr INR (Anticoag Therapy) 1.13 H (0.89-1.11) APTT 34.6 (26.0-36.3) seconds D-Dimer, Quantitative > 1050 H (Less Than 230) ng/mL Sodium 136 (133-145) mmol/L Potassium 4.2 (3.5-5.0) mmol/L Chloride 104 (101-111) mmol/L Carbon Dioxide 25 (22-32) mmol/L Anion Gap 7 (2-11) mmol/L BUN 25 H (6-24) mg/dL Creatinine 1.03 (0.67-1.17) mg/dL Est GFR ( Amer) 91.8 (>60) Est GFR (Non-Af Amer) 71.4 (>60) BUN/Creatinine Ratio 24.3 H (8-20) Glucose 99 (70-100) mg/dL Lactic Acid (0.5-2.0) mmol/L Calcium 8.6 (8.6-10.3) mg/dL Total Bilirubin 0.50 (0.2-1.0) mg/dL AST 107 H (13-39) U/L ALT 74 H (7-52) U/L Alkaline Phosphatase 59 (34-104) U/L Total Creatine Kinase 543 H (10-223) U/L CK-MB (CK-2) 74.9 H (0.6-6.3) ng/mL Troponin I 21.15 H* (<0.04) ng/mL C-Reactive Protein 29.35 H (< 5.00) mg/L B-Natriuretic Peptide ( - 100) pg/mL Total Protein 6.6 (6.4-8.9) g/dL Albumin 3.4 (3.2-5.2) g/dL Globulin 3.2 (2-4) g/dL Albumin/Globulin Ratio 1.1 (1-3) LDL Cholesterol Direct 96 mg/dL 11/29/16 11/29/16 Range/Units 11:11 11:11 WBC (3.5-10.8) 10^3/ul RBC (4.0-5.4) 10^6/ul Hgb (14.0-18.0) g/dl Hct (42-52) % MCV (80-94) fL MCH (27-31) pg MCHC (31-36) g/dl RDW (10.5-15) % Plt Count (150-450) 10^3/ul MPV (7.4-10.4) um3 Neut % (Auto) (38-83) % Lymph % (Auto) (25-47) % [place] % (Auto) (1-9) % Eos % (Auto) (0-6) % Baso % (Auto) (0-2) % Absolute Neuts (auto) (1.5-7.7) 10^3/ul Absolute Lymphs (auto) (1.0-4.8) 10^3/ul Absolute Monos (auto) (0-0.8) 10^3/ul Absolute Eos (auto) (0-0.6) 10^3/ul Absolute Basos (auto) (0-0.2) 10^3/ul Absolute Nucleated RBC 10^3/ul Nucleated RBC % ESR (0-40) mm/Hr INR (Anticoag Therapy) (0.89-1.11) APTT (26.0-36.3) seconds D-Dimer, Quantitative (Less Than 230) ng/mL Sodium (133-145) mmol/L Potassium (3.5-5.0) mmol/L Chloride (101-111) mmol/L Carbon Dioxide (22-32) mmol/L Anion Gap (2-11) mmol/L BUN (6-24) mg/dL Creatinine (0.67-1.17) mg/dL Est GFR ( Amer) (>60) Est GFR (Non-Af Amer) (>60) BUN/Creatinine Ratio (8-20) Glucose (70-100) mg/dL Lactic Acid 1.4 (0.5-2.0) mmol/L Calcium (8.6-10.3) mg/dL Total Bilirubin (0.2-1.0) mg/dL AST (13-39) U/L ALT (7-52) U/L Alkaline Phosphatase (34-104) U/L Total Creatine Kinase (10-223) U/L CK-MB (CK-2) (0.6-6.3) ng/mL Troponin I (<0.04) ng/mL C-Reactive Protein (< 5.00) mg/L B-Natriuretic Peptide 183 H ( - 100) pg/mL Total Protein (6.4-8.9) g/dL Albumin (3.2-5.2) g/dL Globulin (2-4) g/dL Albumin/Globulin Ratio (1-3) LDL Cholesterol Direct mg/dL Result Diagrams: 11/29/16 11:11 11/29/16 11:11 Lab Statement: Any lab studies that have been ordered have been reviewed, and results considered in the medical decision making process. Chest Pain Course/Dx - Course Course Of Treatment: CRITICAL CARE TIME LESS THAN 30 MINUTES. PATIENT MET IN ED BY STEMI TEAM. ADMIT TO CHROMIUM PLATER. - Diagnoses Provider Diagnoses: STEMI (ST elevation myocardial infarction) - Provider Notifications Discussed Care Of Patient With: Felipe Cunha Time Discussed With Above Provider: 11:01 Instructed by Provider To: Other - Discussed pt Discharge - Discharge Plan Condition: Fair Disposition: ADMITTED TO [facility] documentation as recorded by the Summer poe Thomas accurately reflects the service I personally performed and the decisions made by me, Edgard Hinton MD.
[2016-11-29 17:55] LABS: Troponin I 21.55 ng/mL (<0.04)
[2016-11-29] MEDS ORDERED: NS 0.9% 1000 ML* 1,000 ML IV ONE (18:50)
[2016-11-29] MEDS: Carvedilol TAB* 3.125 MG PO SCH (20:38)
--- NOTE | 2016-11-29 21:35 | HP ---
CC: Sil Frederick MD; Laureano Elam MD ADMISSION HISTORY AND PHYSICAL: DATE OF ADMISSION: 11/29/16 CHIEF COMPLAINT: The patient with chest discomfort and shortness of breath with abnormal EKG with STEMI alert called in the field. HISTORY OF PRESENT ILLNESS: The patient is a 71-year-old white male with no prior known history of significant coronary artery disease. Of note, he had been evaluated by cardiac catheterization in June 2016 following a history of abnormal chemical stress test raising question of a moderate inferior wall infarction with elevated TID and frequent PVCs on Holter monitor. The cardiac catheterization demonstrated mild disease with a LAD having a 20% to 25% proximal lesion and a 25% mid lesion. The right coronary artery had a 30% to 35 % proximal PDA lesion and the circumflex had a 30% lesion in the third obtuse marginal branch. LV function looked fairly well preserved. There were no definitive focal wall motion abnormalities identified. The patient apparently had his PVCs assessed by Holter monitor both by Dr. Elam and also reportedly by Dr. Jose G Carty ([employer], [facility]) and at that point, no further therapy other than medical management was pursued. The patient states that starting 3 days ago, he started having progressive shortness of breath and a sense of chest pressure or heaviness or tightness. He said it was worse when he would lie down. It waxed and waned at times but according to him, did not completely go away to have no symptoms at all. It got worse even early in the morning hours of today and as such, he decided to go to his family doctor. His family doctor performed an EKG. It was found to be grossly abnormal and an ambulance was called and he was brought in with a STEMI alert called on the way. In the emergency room, he was continuing to have discomfort in the chest albeit not severe, but still present. His vital signs were stable. His EKG demonstrated a right bundle-branch block with a left posterior hemiblock with ST segment elevation seen in leads V2 to V5. Given these findings and the continued symptoms being presented and the fact that it got worse with in the past 12 hours, the decision was made to proceed to the cardiovascular laboratory. The risk and benefits were explained to him and he understood them and wished to proceed. PAST MEDICAL HISTORY: Hypertension, hyperlipidemia, sleep apnea, obesity, mild CAD as defined above. Also, he has osteoarthritis. Benign prostatic hypertrophy. ALLERGIES: Include LISINOPRIL for which he has cough, ZOCOR which he gets some myalgias even at 10 mg, and PRAVASTATIN as well (he is currently not on any statin therapy). REVIEW OF SYSTEMS: Pertinent to proceeding to the cardiovascular laboratory, he denied any hematemesis, hematochezia, hematuria. No stroke or TIA. He has no history of significant kidney disease. He does have the sleep apnea as mentioned, and he has no dye allergy. PHYSICAL EXAMINATION VITAL SIGNS: When they saw him on the stretcher in the emergency room, last vital signs by the paramedics had blood pressure in the 130 to 140 range with a pulse in the 90s to low 100, respirations 16. HEENT: Conjunctivae pink. Sclerae clear. NECK: Supple with no obvious increased JVP. Carotid had fair upstroke and volume. No definitive bruits. LUNGS: Revealed no accessory muscle usage. Lying on the cart, he had no active rales, rhonchi, or wheezes anteriorly or laterally. There were mild decreased breath sounds laterally. HEART: Revealed no visible heaves. No palpable heaves or thrills. Heart sounds in general were quite distant in nature and normal S1 and S2. No significant S3 or S4 gallop that I could appreciate. I could not appreciate any significant systolic or diastolic murmur. Although in the emergency room, it was somewhat difficult in general to hear heart sounds. ABDOMEN: Soft, nontender. EXTREMITIES: Without pitting edema. Pulses were intact. Femoral pulse noted without bruit. NEUROLOGIC: The patient alert and oriented with normal mentation. MUSCULOSKELETAL: The patient moves all extremities appropriately. PSYCHOLOGICAL: The patient with normal affect. OVERALL ASSESSMENT: The patient now presents with shortness of breath and chest discomfort that has been present for a prolonged period of time with an EKG that appears grossly abnormal for the possibility of an anterior myocardial infarction with right bundle branch block. At this point in time, the risks and benefits were explained and he understood them and wished to proceed. Further management will be made pending the results of the cardiac catheterization. The patient has already received Brilinta 180 mg, full dose aspirin, and 4000 units of heparin. [id number]/[facility] #: [id number] [facility]
[2016-11-29 23:53] LABS: Troponin I 21.68 ng/mL (<0.04)
[2016-11-30] MEDS ORDERED: CMCS - Melatonin (NF) 3 MG TAB PO PRN (01:13)
[2016-11-30] MEDS: Acetaminophen TAB* 325 MG PO PRN ×2 (01:31→09:29)
[2016-11-30 05:23] LABS: Hematocrit 34 % (42-52); Hemoglobin 10.9 g/dl (14.0-18.0); Mean Corpuscular HGB Conc 32 g/dl (31-36); Mean Corpuscular Hemoglobin 27 pg (27-31); Mean Corpuscular Volume 84 fL (80-94); Mean Platelet Volume 10 um3 (7.4-10.4); Red Blood Count 4.04 10^6/ul (4.0-5.4); Red Cell Distribution Width 14 % (10.5-15)
[2016-11-30 05:34] LABS: Albumin 3.3 g/dL (3.2-5.2); BUN/Creatinine Ratio 17.6 (8-20); Calcium 8.5 mg/dL (8.6-10.3); EGFR African American 77.7 (>60); EGFR Non-African American 60.4 (>60); Globulin 2.9 g/dL (2-4); HDL Cholesterol 21.9 mg/dL; Potassium 4.2 mmol/L (3.5-5.0); Total Bilirubin 0.5 mg/dL (0.2-1.0); Total Protein 6.2 g/dL (6.4-8.9)
[2016-11-30 06:24] LABS: Troponin I 23.78 ng/mL (<0.04)
[2016-11-30] MEDS ORDERED: Aspirin Low Dose CHEW TAB* 81 MG PO SCH (09:00)
[2016-11-30] MEDS ORDERED: Losartan TAB* 25 MG PO SCH (09:00)
[2016-11-30] MEDS: Carvedilol TAB* 3.125 MG PO SCH (09:13)
--- NOTE | 2016-11-30 10:37 | PN ---
Progress Note - Progress Note Date of Service: 11/30/16 Note: CRITICAL CARE MEDICINE DATE: 11/30/16 TIME: 1000 SUBJECTIVE: Patient seen and examined. Feels ok but khan remains PHYSICAL EXAM: Vital Signs: Reviewed. Neurologic: awake, communicating, holds capacity Cardiovascular: S1 S2 Respiratory: no rales Abdomen: obese, soft, no masses Extremities: cool, no edema Access: piv; post groin cath LABS: Reviewed. IMAGING: Reviewed. MEDICATIONS: Reviewed. ASSESSMENT: 71 M Stable overnight. CE have remained up. Seems more indicative of ongoing myocarditis. Perfusion stable. intravascular vol status stable and interstitially stable to mildly up and holding off on any further fluid despite mild inc Cr. BUn better. Conduction abn concerning and cards already reaching out to [facility] to transfer. Remains on nocturnal cpap and copd adjunctive. No abx at present. Supportive and preventative care as ordered. Disposition: ICU, acuity 2 Code Status: Full Critical Care Time: 30min Adi Parson DO
--- NOTE | 2016-11-30 10:54 | DS ---
CRITICAL CARE MEDICINE DISCHARGE SUMMARY ADMISSION DATE: 11/29/2016 ICU ADMISSION DATE: 11/30/2016 PRIMARY CARE PROVIDER: Dr. Tyron Frederick. PRIMARY CARDIOLOGISTS: Dr. Laureano Elam. REFERRING PHYSICIAN: Dr. Felipe Cunha. DIAGNOSIS: 1. Acute myocarditis. 2. 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 4. Moderate to severe concentric left ventricular hypertrophy. 5. Conduction delay. 6. Mild obstructive sleep apnea on nocturnal cpap. 7. Mild chronic obstructive pulmonary disease. MEDICATIONS AT DISCHARGE: Acetaminophen (Tylenol Tab*) 650 mg PO Q6H PRN PRN Reason: PAIN/FEVER Last Admin: 11/30/16 09:29 Dose: 650 mg Aspirin (Aspirin Low Dose Tab*) 81 mg PO DAILY [facility] Last Admin: 11/30/16 09:13 Dose: 81 mg Carvedilol (Coreg Tab*) 3.125 mg PO BID [facility] Last Admin: 11/30/16 09:13 Dose: 3.125 mg Device (Tiotropium Inhaler Device*) 1 each INH ONCE ONE Stop: 11/30/16 11:01 Losartan Potassium (Cozaar Tab*) 50 mg PO DAILY [facility] Last Admin: 11/30/16 09:13 Dose: 50 mg Melatonin (Melatonin (Nf)) 3 mg PO BEDTIME PRN PRN Reason: SLEEP Last Admin: 11/30/16 01:31 Dose: 3 mg Nitroglycerin (Nitroglycerin Tab 0.4 Mg*) 0.4 mg SL Q5M PRN PRN Reason: ANGINA Tiotropium [place] (Spiriva Cap.Inh*) 1 cap INH DAILY [facility] ALLERGIES: Statins., Lisinopril - cough. HOSPITAL COURSE: 71 year old male admitted with ECG indicating anterior STEMI and taken immediately to cardiac cath. No culpruit lesion and cath similar to results from June 2016. Patient with mild shortness of breath but without chest pain. Patient states his breathing aliments started 3 days ago. was just in the hospital for pneumonia one week ago and he thought he might be getting pneumonia. If he thinks back he may have had a bit more shortness of breath even starting a week or 2 prior. Stabilized in ICU and received total 2 liters NS post cath with improved BUN but Cr mildly up post contrast. Placed on corge 3.125mg bid and losartan 50mg. CPAP overnight. RA otherwise. Cardiac enzymes have remained elevated and ECG with worsening malignant signs and conduction abnormalities and transfer care sought to [facility]. DISPOSITION: [facility]: CCU Dr. Avelar. Dr. Cunha disucussed with Dr. Miguelina Ware. DIET: Heart Healthy ACTIVITY: OOB CODE STATUS: FULL SPECIAL INSTRUCTIONS: Follow up with treating medical service D/w Dr. Cunha. Adi Parson, DO Laboratory Tests 11/29/16 11/29/16 11/29/16 11:11 11:11 11:11 WBC 6.0 RBC 4.54 Hgb 12.1 L Hct 38 L MCV 84 MCH 27 MCHC 32 RDW 14 Plt Count 150 MPV 9 Neut % (Auto) 68.3 Lymph % (Auto) 18.7 L [place] % (Auto) 10.3 H Eos % (Auto) 2.3 Baso % (Auto) 0.4 Absolute Neuts (auto) 4.1 Absolute Lymphs (auto) 1.1 Absolute Monos (auto) 0.6 Absolute Eos (auto) 0.1 Absolute Basos (auto) 0 Absolute Nucleated RBC 0 Nucleated RBC % 0 ESR 40 INR (Anticoag Therapy) 1.13 H APTT 34.6 D-Dimer, Quantitative > 1050 H Sodium 136 Potassium 4.2 Chloride 104 Carbon Dioxide 25 Anion Gap 7 BUN 25 H Creatinine 1.03 Est GFR ( Amer) 91.8 Est GFR (Non-Af Amer) 71.4 BUN/Creatinine Ratio 24.3 H Glucose 99 Lactic Acid Calcium 8.6 Total Bilirubin 0.50 AST 107 H ALT 74 H Alkaline Phosphatase 59 Total Creatine Kinase 543 H CK-MB (CK-2) 74.9 H Troponin I 21.15 H* C-Reactive Protein 29.35 H B-Natriuretic Peptide Total Protein 6.6 Albumin 3.4 Globulin 3.2 Albumin/Globulin Ratio 1.1 Triglycerides Cholesterol LDL Cholesterol LDL Cholesterol Direct 96 HDL Cholesterol 11/29/16 11/29/16 11/29/16 11:11 11:11 17:10 WBC RBC Hgb Hct MCV MCH MCHC RDW Plt Count MPV Neut % (Auto) Lymph % (Auto) [place] % (Auto) Eos % (Auto) Baso % (Auto) Absolute Neuts (auto) Absolute Lymphs (auto) Absolute Monos (auto) Absolute Eos (auto) Absolute Basos (auto) Absolute Nucleated RBC Nucleated RBC % ESR INR (Anticoag Therapy) APTT D-Dimer, Quantitative Sodium Potassium Chloride Carbon Dioxide Anion Gap BUN Creatinine Est GFR ( Amer) Est GFR (Non-Af Amer) BUN/Creatinine Ratio Glucose Lactic Acid 1.4 Calcium Total Bilirubin AST ALT Alkaline Phosphatase Total Creatine Kinase 543 H CK-MB (CK-2) 68.4 H Troponin I 21.55 H* C-Reactive Protein B-Natriuretic Peptide 183 H Total Protein Albumin Globulin Albumin/Globulin Ratio Triglycerides Cholesterol LDL Cholesterol LDL Cholesterol Direct HDL Cholesterol 11/29/16 11/29/16 11/30/16 17:10 23:06 05:02 WBC 6.0 RBC 4.04 Hgb 10.9 L Hct 34 L MCV 84 MCH 27 MCHC 32 RDW 14 Plt Count 134 L MPV 10 Neut % (Auto) 70.3 Lymph % (Auto) 19.0 L [place] % (Auto) 7.7 Eos % (Auto) 2.3 Baso % (Auto) 0.7 Absolute Neuts (auto) 4.2 Absolute Lymphs (auto) 1.1 Absolute Monos (auto) 0.5 Absolute Eos (auto) 0.1 Absolute Basos (auto) 0 Absolute Nucleated RBC 0 Nucleated RBC % 0 ESR INR (Anticoag Therapy) APTT 34.0 D-Dimer, Quantitative Sodium Potassium Chloride Carbon Dioxide Anion Gap BUN Creatinine Est GFR ( Amer) Est GFR (Non-Af Amer) BUN/Creatinine Ratio Glucose Lactic Acid Calcium Total Bilirubin AST ALT Alkaline Phosphatase Total Creatine Kinase 505 H CK-MB (CK-2) 55.7 H Troponin I 21.68 H* C-Reactive Protein B-Natriuretic Peptide Total Protein Albumin Globulin Albumin/Globulin Ratio Triglycerides Cholesterol LDL Cholesterol LDL Cholesterol Direct HDL Cholesterol 11/30/16 05:02 WBC RBC Hgb Hct MCV MCH MCHC RDW Plt Count MPV Neut % (Auto) Lymph % (Auto) [place] % (Auto) Eos % (Auto) Baso % (Auto) Absolute Neuts (auto) Absolute Lymphs (auto) Absolute Monos (auto) Absolute Eos (auto) Absolute Basos (auto) Absolute Nucleated RBC Nucleated RBC % ESR INR (Anticoag Therapy) APTT D-Dimer, Quantitative Sodium 134 Potassium 4.2 Chloride 106 Carbon Dioxide 25 Anion Gap 3 BUN 21 Creatinine 1.19 H Est GFR ( Amer) 77.7 Est GFR (Non-Af Amer) 60.4 BUN/Creatinine Ratio 17.6 Glucose 115 H Lactic Acid Calcium 8.5 L Total Bilirubin 0.50 AST 92 H ALT 68 H Alkaline Phosphatase 58 Total Creatine Kinase 474 H CK-MB (CK-2) 50.1 H Troponin I 23.78 H* C-Reactive Protein B-Natriuretic Peptide Total Protein 6.2 L Albumin 3.3 Globulin 2.9 Albumin/Globulin Ratio 1.1 Triglycerides 143 Cholesterol 136 LDL Cholesterol 86 LDL Cholesterol Direct HDL Cholesterol 21.9
[2016-11-30] MEDS ORDERED: Tiotropium CAP.INH* CAP.INH/18 MCG INH SCH (11:00)
[2016-11-30] MEDS ORDERED: Spiriva Inhaler DEVICE* 1 EACH DEVICE INH ONE (11:00)
[2016-11-30 11:39] VITALS: BP 110/75
--- NOTE | 2016-11-30 11:52 | CATH ---
CC: Laureano Elam MD, [facility]; Sil Frederick MD CARDIAC CATHETERIZATION REPORT: DATE OF PROCEDURE: 11/29/16 INDICATION FOR PROCEDURE: The patient with chest discomfort, abnormal EKG with right bundle-branch block with ST segment elevation seen in the precordial leads , assessed for the presence of anterior wall myocardial infarction, ST elevation and possible coronary artery disease. PROCEDURE: Coronary arteriography, left heart catheterization, left ventriculography. DESCRIPTION OF PROCEDURE: The patient was interviewed and examined in the emergency room having been brought in by the EMS. The patient was kept on the gurney from the ambulance service and was treated as an ED bypass after receiving 4000 units of heparin intravenously and 180 mg of Brilinta. The patient had already received full dose aspirin therapy. Risks and benefits were explained. He understood them and wished to proceed. He was brought to the cardiovascular laboratory where a formal time-out was performed. The patient was prepped and draped in sterile fashion. Right groin area was anesthetized with 1% lidocaine. The right femoral artery was cannulated with an [id number] approach and a 6.5 Ivorian Merit Prelude sheath was placed. Coronary arteriography was performed using a FR4 curve 5- Ivorian catheter for the right coronary artery. Left coronary artery was cannulated using a 6 Ivorian VL3.5 curve left guide catheter. Following this, central aortic pressure was recorded using a 5-Ivorian pigtail catheter advanced to the ascending aorta. The catheter was then passed across the aortic valve into the left ventricle where left ventricular pressure was recorded. Left ventriculography was performed utilizing a total of 26 cc of Visipaque dye at a rate of 13 cc per second. The catheter was then pulled back across the aortic valve to recheck gradient. Following this, an injection was made into the right femoral sheath to assess the eligibility to utilize closure device. It was found to be acceptable for this and as such, a 6/7 Ivorian Mynx closure device was deployed with good hemostasis. The patient was transported to the intensive care unit in stable condition. The total contrast used was 95 cc of Visipaque dye. The radiation exposure included 4.5 minutes of fluoro time. The air kerma radiation was 557 milligray. The DAP radiation was 3441 microgray per meter square. RESULTS: HEMODYNAMIC DATA: Left heart catheterization - central aortic pressure recorded at 115/78 with a mean of 95, left ventricular pressure 111/left ventricular end- diastolic pressure of 16 to 18 mmHg. CORONARY ARTERIOGRAPHY: A. Right coronary artery - a dominant vessel supplying a very large PDA and continuing on to supply a small, followed by a very large posterior left ventricular branch, which continued to a last bifurcating posterior left ventricular branch. There was mild disease seen in the proximal area of the right coronary artery disease of approximately 15% to 20%. The posterior descending artery had a proximal narrowing of 25% to 30% noted. The mid portion of the posterior descending artery had a mild narrowing of 30% to 35%. There was no other significant lesion seen throughout. B. Left coronary artery: 1. Left main - widely patent with minimal ostial narrowing of 10%. 2. Left anterior descending artery - proximal portion of the left anterior descending artery had an area of 20% narrowing in it. The left anterior descending artery supplied a thin first and second and third diagonal branch, it continued to course toward the apical region, but did not extend fully to the apical region. There were no significant lesions seen in the mid and distal portion, but it did taper to a small caliber vessel. 3. Circumflex artery supplied a high first short obtuse marginal branch, small in caliber. The artery supplied a thin second followed by a moderate size third obtuse marginal branch, which traversed towards the low posterolateral apical region, which had several thin branches in its distal portion. There were no significant lesions seen throughout the course of the circumflex. Of note, the distal portion of the vessel was small in caliber. LEFT VENTRICULOGRAPHY: Performed in the [place] projection revealed global moderate hypokinesis, particularly of the mid anterior and mid inferior wall. The overall ejection fraction is estimated at 35-40%. OVERALL ASSESSMENT: Moderate left ventricular systolic dysfunction, which will be reassessed by echocardiography for more accurate assessment. No significant stenotic coronary artery disease noted as described above. The patient will be continued on MIGUEL A inhibitor and beta tyrone therapy. Cardiac enzymes will be cycled throughout the course of the hospitalization. Will watch for any progression of conduction abnormalities. May need to consider transfer to tertiary center with more support for potential worsening LV function. [id number]/[facility] #: [id number] [facility]
== END 2016-11-30 12:20 | disposition short-term general hospital (02) | DRG 287 ==
LOC: ED 11:06 → ICU 11:55
PROVIDERS: ADMIT Internal Medicine Cardiovascular Disease; ATTEND Internal Medicine Cardiovascular Disease
PROC: B215YZZ Fluoroscopy of Left Heart using Other Contrast (ICD-10-PCS; 2016-11-29)
PROC: 4A023N7 Measurement of Cardiac Sampling and Pressure, Left Heart, Percutaneous Approach (ICD-10-PCS; 2016-11-29)
PROC: B211YZZ Fluoroscopy of Multiple Coronary Arteries using Other Contrast (ICD-10-PCS; principal; 2016-11-29 11:15)
DX: I40.9 Acute myocarditis, unspecified (principal); I42.9 Cardiomyopathy, unspecified; J44.9 Chronic obstructive pulmonary disease, unspecified; I10 Essential (primary) hypertension; N40.0 Benign prostatic hyperplasia without lower urinary tract symptoms; Z96.653 Presence of artificial knee joint, bilateral; E78.5 Hyperlipidemia, unspecified; E66.9 Obesity, unspecified; I25.10 Atherosclerotic heart disease of native coronary artery without angina pectoris; M19.90 Unspecified osteoarthritis, unspecified site; G47.33 Obstructive sleep apnea (adult) (pediatric); I51.7 Cardiomegaly; I45.9 Conduction disorder, unspecified; Z88.8 Allergy status to other drugs, medicaments and biological substances; Z87.442 Personal history of urinary calculi; Z87.891 Personal history of nicotine dependence; Z68.33 Body mass index [BMI] 33.0-33.9, adult; Z98.49 Cataract extraction status, unspecified eye
CPT/HCPCS: 36415; 71010; 80053; 80061; 82550; 82553; 83605; 83721; 83880; 84484; 85025; 85379; 85610; 85652; 85730; 86140; 87641; 93005; 93306; 94760; A9270-GY; C1760; C1887; J1644; J2001; J2250; J3010

== ENCOUNTER 2017-01-07 13:20 | Observation (INO) | payer MEDICARE ==
[2017-01-07 14:53] LABS: Hematocrit 29 % (42-52); Hemoglobin 9.2 g/dl (14.0-18.0); Mean Corpuscular HGB Conc 32 g/dl (31-36); Mean Corpuscular Hemoglobin 28 pg (27-31); Mean Corpuscular Volume 87 fL (80-94); Mean Platelet Volume 9 um3 (7.4-10.4); Red Blood Count 3.34 10^6/ul (4.0-5.4); Red Cell Distribution Width 19 % (10.5-15); White Blood Count 6.4 10^3/ul (3.5-10.8)
[2017-01-07 14:54] LABS: Albumin 2.9 g/dL (3.2-5.2); Calcium 8.4 mg/dL (8.6-10.3); EGFR African American 90.8 (>60); EGFR Non-African American 70.6 (>60); Globulin 2.1 g/dL (2-4); Potassium 4.1 mmol/L (3.5-5.0); Total Bilirubin 0.6 mg/dL (0.2-1.0)
[2017-01-07 14:59] LABS: Add Diff/Slide Review? Slide Review Added; Comments Flag Yes; Troponin I 0.07 ng/mL (<0.04)
[2017-01-07 15:26] LABS: Digoxin 0.6 ng/ml (0.8-2.0)
--- NOTE | 2017-01-07 15:39 | RAD ---
HISTORY: Weakness COMPARISONS: November 29, 2016 VIEWS:1: Single frontal portable view of the chest at 3:16 PM FINDINGS: LINES AND TUBES: A left-sided pacemaker is noted CARDIOMEDIASTINAL SILHOUETTE: The cardiomediastinal silhouette is normal for portable technique. PLEURA: The costophrenic angles are sharp. No pleural abnormalities are noted. LUNG PARENCHYMA: The lungs are clear. ABDOMEN: The upper abdomen is clear. There is no subphrenic gas. BONES AND SOFT TISSUES: Degenerative changes are noted along the spine. IMPRESSION: NO ACTIVE CARDIOPULMONARY DISEASE.
--- NOTE | 2017-01-07 15:46 | ED ---
Edis Dalton Rebecca, scribed for Milly Fragoso MD on 01/07/17 at 1403 . Palpitations / Dysrhythmia - HPI Summary HPI Summary: Pt is a 71 y/o M BIBA who presents to ED c/o palpitations characterized as irregular for a few days. Daughter reports his heart will skip beats, then have multiple breats in a row. Additionally c/o lightheadedness, fatigue, nausea, edema and increased SOB. Edema began 2 days ago. Sx aggravated by exertion, alleviated by nothing. Denies fever. On 12/13 the pt had an ICD/pacemaker installed in [place] to treat cardiomyopathy and giant cell myocarditis. Pt reports his systolic BP has been between 113 and 130 with his pulse varying from 48 to 70. Is on 4 immunosuppressants and was taken off Digoxin yesterday. - History of Current Complaint Chief Complaint: EDDysrhythmPalp Time Seen by Provider: 01/07/17 14:01 Hx Obtained From: Patient Onset/Duration: Lasting Days, Still Present Character: Irregular Aggravating: Exertion Alleviating: Nothing Associated Signs & Symptoms: Lightheadedness, Nausea - Allergy/Home Medications Allergies/Adverse Reactions: Allergies Allergy/AdvReac Type Severity Reaction Status Date / Time Statins Allergy Joint Pain Verified 11/29/16 11:17 PMH/Surg Hx/FS Hx/Imm Hx Endocrine/Hematology History: Denies: Hx Anemia, Hx Unexplained Bleeding Cardiovascular History: Reports: Hx Hypertension, Hx Pacemaker/ICD, Other Cardiovascular Problems/Disorders - PVCS, 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, NEG CATH JUL 16, GIANT CELL MYOCARDITIS Denies: Hx Aneurysm, Hx Angina, Hx Angioplasty, Hx Auto Implanted Cardiovert Defib, Hx Cardiac Arrest, Hx Cardiomegaly, Hx Congenital Heart Disease, Hx Congestive Heart Failure, Hx Coronary Artery Disease, Hx Deep Vein Thrombosis, Hx Embolism, Hx Hypercholesterolemia, Hx Hypotension, Hx Peripheral Vascular Disease, Hx Rheumatic Fever, Hx Syncope, Hx Valvular Heart Disease Respiratory History: Reports: Hx Chronic Obstructive Pulmonary Disease (COPD), Hx Pneumonia, Hx Sleep Apnea - CPAP Denies: Hx Asthma, Hx Chronic Bronchitis, Hx Cystic Fibrosis, Hx Lung Cancer , Hx Pleural Effusion, Hx Pulmonary Edema, Hx Pulmonary Embolism, Hx Seasonal Allergies History: Reports: Hx Benign Prostatic Hyperplasia, Hx Kidney Stones Denies: Hx Acute Renal Failure, Hx Chronic Renal Failure, Hx Dialysis, Hx Kidney Infection, Other Problems/Disorders Musculoskeletal History: Reports: Hx Arthritis, Hx Back Problems Denies: Hx Bursitis, Hx Congenital Bone Abnormalities, Hx Fibromyalgia, Hx Gout, Hx Orthopedic Injury, Hx Osteoporosis, Hx Scoliosis, Hx Tendonitis, Other Musculoskeletal History Sensory History: Reports: Hx Contacts or Glasses Denies: Hx Eye Injury, Hx Eye Prosthesis, Hx Glaucoma, Hx Legally Blind, Hx Macular Degeneration, Hx Vision Problem, Hx Deafness, Hx Hearing Aid, Hx Hearing Problem, Other Sensory Impairments Comment Only: Hx Cataracts - S/P BILAT ARTIFICIAL LENSES Opthamlomology History: Reports: Hx Contacts or Glasses Denies: Hx Eye Injury, Hx Eye Prosthesis, Hx Glaucoma, Hx Legally Blind, Hx Macular Degeneration, Hx Vision Problem, Other Sensory Impairments Comment Only: Hx Cataracts - S/P BILAT ARTIFICIAL LENSES - Surgical History Surgery Procedure, Year, and Place: BILATERAL KNEES,SHOULDER Hx Anesthesia Reactions: No Infectious Disease History: Denies: Hx Tuberculosis, Traveled Outside the [place] in Last 30 Days - Family History Known Family History: Negative: Cardiac Disease, Hypertension, Diabetes - Social History Alcohol Use: None Substance Use Type: Reports: None Smoking Status (MU): Former Smoker Type: Cigarettes Have You Smoked in the Last Year: No Review of Systems Positive: Fatigue. Negative: Fever Positive: Palpitations Positive: Shortness Of Breath Positive: Nausea Positive: Edema Neurological: Other - Lightheadedness All Other Systems Reviewed And Are Negative: Yes Physical Exam - Summary Physical Exam Summary: General: Well appearing, no pain distress Skin: Warm, Skin Color Reflects Adequate Perfusion, Dry Eyes: EOMI, LINK ENT: Pharynx normal, TMs normal Neck: Supple, nontender Respiratory: CTA, very diminished lung sounds, no rhonchi, no wheezes, no rales Cardiovascular: IRR, very diminished heart sounds,no murmur, no rub, no gallop, pacemaker scar that is pink, dry and intact Abdomen: Soft, nontender, Non-distended, no guarding, no rebound Bowel: Present Musculoskeletal: ISABELLA, edema in the L leg Neuro: Sensory/motor intact, A&Ox3, CN intact 2-12 Psych: Affect/mood appropriate Triage Information Reviewed: Yes Vital Signs On Initial Exam: Initial Vitals Temp Pulse Resp BP Pulse Ox 97.9 F 69 18 111/60 98 01/07/17 13:39 01/07/17 13:39 01/07/17 13:39 01/07/17 13:39 01/07/17 13:39 Vital Signs Reviewed: Yes Diagnostics - Vital Signs Vital Signs Temp Pulse Resp BP Pulse Ox 01/07/17 13:39 97.9 F 69 18 111/60 98 - Laboratory Lab Results: Lab Results 01/07/17 01/07/17 01/07/17 Range/Units 14:25 14:25 14:25 WBC 6.4 (3.5-10.8) 10^3/ul RBC 3.34 L (4.0-5.4) 10^6/ul Hgb 9.2 L (14.0-18.0) g/dl Hct 29 L (42-52) % MCV 87 (80-94) fL MCH 28 (27-31) pg MCHC 32 (31-36) g/dl RDW 19 H (10.5-15) % Plt Count 107 L (150-450) 10^3/ul MPV 9 (7.4-10.4) um3 Neut % (Auto) 88.1 H (38-83) % Lymph % (Auto) 6.9 L (25-47) % [place] % (Auto) 4.2 (1-9) % Eos % (Auto) 0.4 (0-6) % Baso % (Auto) 0.4 (0-2) % Absolute Neuts (auto) 5.6 (1.5-7.7) 10^3/ul Absolute Lymphs (auto) 0.4 L (1.0-4.8) 10^3/ul Absolute Monos (auto) 0.3 (0-0.8) 10^3/ul Absolute Eos (auto) 0 (0-0.6) 10^3/ul Absolute Basos (auto) 0 (0-0.2) 10^3/ul Absolute Nucleated RBC 0.01 10^3/ul Nucleated RBC % 0.1 INR (Anticoag Therapy) 1.35 H (0.89-1.11) APTT 33.2 (26.0-36.3) seconds D-Dimer, Quantitative 225 (Less Than 230) ng/mL Sodium 141 (133-145) mmol/L Potassium 4.1 (3.5-5.0) mmol/L Chloride 108 (101-111) mmol/L Carbon Dioxide 28 (22-32) mmol/L Anion Gap 5 (2-11) mmol/L BUN 25 H (6-24) mg/dL Creatinine 1.04 (0.67-1.17) mg/dL Est GFR ( Amer) 90.8 (>60) Est GFR (Non-Af Amer) 70.6 (>60) BUN/Creatinine Ratio 24.0 H (8-20) Glucose 97 (70-100) mg/dL Lactic Acid (0.5-2.0) mmol/L Calcium 8.4 L (8.6-10.3) mg/dL Total Bilirubin 0.60 (0.2-1.0) mg/dL AST 19 (13-39) U/L ALT 26 (7-52) U/L Alkaline Phosphatase 38 (34-104) U/L Troponin I 0.07 H* (<0.04) ng/mL Total Protein 5.0 L (6.4-8.9) g/dL Albumin 2.9 L (3.2-5.2) g/dL Globulin 2.1 (2-4) g/dL Albumin/Globulin Ratio 1.4 (1-3) Digoxin 0.6 L (0.8-2.0) ng/ml 01/07/17 Range/Units 14:25 WBC (3.5-10.8) 10^3/ul RBC (4.0-5.4) 10^6/ul Hgb (14.0-18.0) g/dl Hct (42-52) % MCV (80-94) fL MCH (27-31) pg MCHC (31-36) g/dl RDW (10.5-15) % Plt Count (150-450) 10^3/ul MPV (7.4-10.4) um3 Neut % (Auto) (38-83) % Lymph % (Auto) (25-47) % [place] % (Auto) (1-9) % Eos % (Auto) (0-6) % Baso % (Auto) (0-2) % Absolute Neuts (auto) (1.5-7.7) 10^3/ul Absolute Lymphs (auto) (1.0-4.8) 10^3/ul Absolute Monos (auto) (0-0.8) 10^3/ul Absolute Eos (auto) (0-0.6) 10^3/ul Absolute Basos (auto) (0-0.2) 10^3/ul Absolute Nucleated RBC 10^3/ul Nucleated RBC % INR (Anticoag Therapy) (0.89-1.11) APTT (26.0-36.3) seconds D-Dimer, Quantitative (Less Than 230) ng/mL Sodium (133-145) mmol/L Potassium (3.5-5.0) mmol/L Chloride (101-111) mmol/L Carbon Dioxide (22-32) mmol/L Anion Gap (2-11) mmol/L BUN (6-24) mg/dL Creatinine (0.67-1.17) mg/dL Est GFR ( Amer) (>60) Est GFR (Non-Af Amer) (>60) BUN/Creatinine Ratio (8-20) Glucose (70-100) mg/dL Lactic Acid 1.3 (0.5-2.0) mmol/L Calcium (8.6-10.3) mg/dL Total Bilirubin (0.2-1.0) mg/dL AST (13-39) U/L ALT (7-52) U/L Alkaline Phosphatase (34-104) U/L Troponin I (<0.04) ng/mL Total Protein (6.4-8.9) g/dL Albumin (3.2-5.2) g/dL Globulin (2-4) g/dL Albumin/Globulin Ratio (1-3) Digoxin (0.8-2.0) ng/ml Result Diagrams: 01/07/17 14:25 01/07/17 14:25 Lab Statement: Any lab studies that have been ordered have been reviewed, and results considered in the medical decision making process. - Radiology CXR Xray Interpretation: No Acute Changes - NO ACTIVE CARDIOPULMONARY DISEASE. 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 Elam who did an echo that looked good. He asked that pt be observed for his bigeminy by Dr. Sims who will contact Dr. Elam for more information - Diagnoses Provider Diagnoses: Bigeminy - Physician Notifications Discussed Care Of Patient With: Laureano Elam Time Discussed With Above Provider: 15:36 Instructed by Provider To: Other - Advises admission to hospitalist services. Discussed care of pt with Dr. Rodolfo Sims at 1544 who accepts pt for admission. Discharge - Discharge Plan Condition: Stable Disposition: ADMITTED TO [facility] Referrals: Sil Frederick MD [Primary Care Provider] - The documentation as recorded by the Edis poe Rebecca accurately reflects the service I personally performed and the decisions made by me, Milly Fragoso MD.
[2017-01-07 15:53] LABS: Immature Granulocytes 3 % (0-9); Metamyelocytes % 3 % (0-2); Neutrophil % 93 % (38-83)
[2017-01-07 15:54] LABS: RBC Morphology Normal (Normal)
[2017-01-07] MEDS ORDERED: Ondansetron INJ* 2 MG/ML VIAL IV PRN (16:48)
[2017-01-07] MEDS ORDERED: Acetaminophen TAB* 325 MG PO PRN (16:48)
[2017-01-07] MEDS ORDERED: Ipratropium 0.5MG/2.5ML NEB* 0.5 MG/2.5 ML NEB.SOLN INH PRN (17:12)
[2017-01-07] MEDS ORDERED: Tamsulosin CAP* 0.4 MG PO SCH (18:00)
[2017-01-07 18:11] LABS: Magnesium 1.6 mg/dL (1.9-2.7)
[2017-01-07] MEDS: cycloSPORINE Modified CAP(*) 100 MG PO SCH (20:17)
[2017-01-07] MEDS: CYCLOSPORINE MODIFIED 25 MG PO SCH (20:17)
[2017-01-07] MEDS: Apixaban* 5 MG TAB PO SCH (20:18)
[2017-01-07] MEDS: Mycophenolate Mofetil CAP(*) 250 MG PO SCH (20:18)
[2017-01-07] MEDS ORDERED: Metoprolol Tartrate TAB* 50 mg PO ONE (21:00)
--- NOTE | 2017-01-07 22:03 | CONS ---
CC: Dr. Frederick CARDIOLOGY CONSULTATION REPORT: DATE OF CONSULT: 01/07/17 REASON FOR EVALUATION: Cardiomyopathy, fatigue, lightheadedness. HISTORY OF PRESENT ILLNESS: This is a very pleasant 71-year-old gentleman, who presented last month with shortness of breath and abnormal EKG and elevated troponins. He went to the finishing lab technician and was found to have no culprit lesion; but because of continued elevation of his troponin, he was transferred to [facility]. There, he underwent myocardial biopsy and was diagnosed with giant cell myocarditis and was treated with immunosuppressants. He also had a cardiac arrest and had an ICD implanted. When I saw him on the , he was complaining of lightheadedness with exertion. He was found to be in atrial flutter with a rapid ventricular response. Because of those findings , he was started on digoxin and a MAEVE guided cardioversion the following week. However, at that time, he felt better and was in sinus rhythm. He has also been having problems with hyperkalemia. His valsartan was stopped last week and yesterday he awoke and said he was more fatigued than usual. He said usually he is able to walk 3000 steps a day and feels well doing that; however, yesterday he got fatigued just walking short distances and trying to go up flight of stairs, he had to stop and wait. He denies any chest pain, no fevers , no syncope, no palpitations, but his daughter has been taking his pulse and notices that occasionally it is in the 40s and irregular. He denies any diarrhea. No hematemesis, hematochezia, no cough, no orthopnea. He has been sitting upright because of a sling for his ICD. He did call Dr. Ware yesterday and reported the symptoms and Dr. Ware told him to stop the digoxin, but because of persistent symptoms, he called me and was told to come to the emergency room. He also reports that he has baseline tinnitus, but it got a little worse on the digoxin, but got much worse the last couple of days. The patient also reports that he has a loss of appetite since this illness started in November, but it is worse over the last couple of weeks and he attributed to his medications. His nausea did seem to get worse when he started the potassium lowering medication. Daughter Brittnee at bedside. CURRENT MEDICATIONS: Include: 1. Apixaban 5 mg twice a day. 2. Cyclosporine 100 mg 2 times a day. 3. Cyclosporine 25 mg 2 tablets in the a.m. and 2 in the evening. 4. Fluconazole 200 mg a day. 5. CellCept 250 mg 2 capsules every 12 hours. 6. Pantoprazole 40 mg every morning. 7. Prednisone 5 mg tablets and then tapering. 8. Sulfamethoxazole/trimethoprim 800/160 mg 1 tablet by mouth 3 times a week. 9. Valganciclovir 450 mg 2 tablets by mouth daily. 10. Valsartan has been on hold since December 23, that was 40 mg. 11. Metoprolol 100 mg daily. 12. Acetaminophen. 13. Aspirin 81 mg a day. 14. Ascorbic acid 1000 mg a day. 15. Cyanocobalamin 1000 mcg a day. 16. Finasteride 5 mg a day. 17. Flonase 2 sprays as needed. 18. Ipratropium 17 mcg in actuation inhaler 2 puffs to the lungs 4 times daily. 19. Metronidazole cream as needed. 20. Tamsulosin 0.4 mg every evening. 21. Florinef .1 mg po qd. The patient is also on a medicine to lower his potassium, but we do not have the name to that medication. PAST MEDICAL HISTORY: Includes cardiomyopathy with giant cell myocarditis in . At that time, he had an elevated D-dimer greater than a 1050 as well as elevated transaminase, CPK 543 and a troponin at 21.15. Echocardiogram revealed moderate to severe LVH, global hypokinesis of the left ventricle, minor regional variation and EF 35% to 40%. Mild to moderately reduced IV systolic function, mild to moderate MR. Compared to September 21, the LV function and RV function were worse. On September 20, his EF was 55% to 60%. He had a cardiac catheterization on November 29, which revealed a 10% left main, nonobstructive disease in the LAD, and the LAD tapered to a small vessel. Circumflex had no significant lesions, moderate hypokinesis, specifically the mid anterior, mid inferior wall, and overall EF was 35% to 40%. He was transferred to [facility], apparently had a cardiac arrest and underwent biopsy, diagnosed with signs of myocarditis and treated with steroids, CellCept , and cyclosporine. The ICD was placed on December 11. He had atrial flutter postop with elevated heart rates. He was treated with digoxin to slow the rate and he converted to sinus rhythm. PMH; He has a history of hypertension, hyperlipidemia, benign essential hypertension, left bundle-branch block since 2005, BPH, osteoarthritis in bilateral knees, prostate disease with PSA with negative biopsy, possible prostatitis in 2006, cervical disk disease in 2010, COPD in June 2015, mild. PAST SURGICAL HISTORY: Past surgeries include bilateral knee surgeries in October 2008 with right knee replacement, left knee replacement in December 2008, rotator cuff left shoulder, cataract removal, umbilical hernia repair, biopsy in September 2006 of his prostate, dental extraction in December 2007, ICD placed in November 2016. His Holter from March 2016 revealed 7200 PVCs, a repeat Holter in April revealed 8000 PVCs. He had a negative nuclear in April 2016, no evidence of ischemia. Moderate inferior infarction. SOCIAL HISTORY: He is , he has 4 daughters. He is a retired chicken bryan. He denies tobacco use, he denies alcohol use. He does drink decaffeinated coffee a day. ALLERGIES: He denies any allergies, but has had trouble tolerating statin in the past with muscle weakness on ZOCOR and PRAVASTATIN and he had a cough on LISINOPRIL. PHYSICAL EXAMINATION: On physical exam, he is a well-developed, well-nourished gentleman, in no apparent distress. Pulse was 70 with frequent PVC's, blood pressure 120/76, O2 sat 98% on room air. No significant JVD. Carotids 2+ without bruits. No cervical adenopathy or thyromegaly. Extraocular muscles intact. Sclerae anicteric. Cardiac Exam: S1 and S2. Somewhat distant. No clear murmurs, gallops, or rubs. Chest was clear. No CVAT. Abdomen: Obese, bowel sounds present, nontender. No hepatosplenomegaly. Femoral pulses are intact without bruits. Distal pulses are intact. There was 1 to 2+ edema of the right leg and 2+ edema of left leg. Negative Homans' sign. Motor strength 5/5 bilaterally. DIAGNOSTIC STUDIES/LAB DATA: Labs are pending at this time. Labs include white count 7.8, hemoglobin 9.9, hematocrit 31%, platelet count of 100. Bandemia noted with neutrophils 98.1%. Sodium 141, potassium of 4.6, chloride of 110, bicarb 28, BUN of 40, creatinine of 1.01. Dig level 1.1. Cyclosporine level 303. Those labs are from January 03. CBC is pending. IMPRESSION: Mr. Bolaños has fatigue and edema of unclear etiology. His bedside echo preliminarily reveals improved LV function, but he does seem to have bigemini or trigemini. Possibilities for his fatigue include anemia, dehydration, dig toxicity, arrhythmias including paroxysmal atrial flutter, hypotension related to his medications as well as infection given he is on multiple immunosuppressants. I have discussed the case with the patient and his daughter and with Dr. Fragoso. For the time being, I recommend the following : 1. He is to have laboratories including D-dimer, CBC, electrolytes, troponin and CK. 2. I will check a dig level. 3. We will consider hydration if indeed these parameters are still consistent with dehydration.P 4. We will contact Dr. Ware of the heart failure unit up at [facility] once more information is available. 5. Further recommendations will depend on his clinical course. His prognosis remains guarded given his underlying cardiomyopathy and multiple immunosuppressives. = [id number]/[facility] #: [id number] Addendum: I discussed this case with Dr. Sharif and Dr. Contreras via telephone on 01.07.17 shortly after seeing the patient. PLAN: replace lytes including MG increase metoprolol to control bigeminy If bigeminy persist, consider trial of amiodrone to see if fatigue improves with correction of bigmeiny Cultured for possible occult infection given immunosuppresion. stop flourinef to see if nausea improves. if nausea and anorexia perisist, Dr. Ware will consider changing his immunosuppressives. MTDD
[2017-01-07 22:12] LABS: Urine Bilirubin Negative (Negative); Urine Glucose Negative (Negative); Urine Nitrite Negative (Negative)
--- NOTE | 2017-01-07 22:37 | HP ---
ADMISSION HISTORY AND PHYSICAL: DATE OF ADMISSION: 01/07/17 PRIMARY CARE PROVIDER: Dr. Frederick. SIGNAL MAINTENANCE TECHNICIAN: Dr. Elam. Rotary Drier Operator in [place] is Dr. Ware. HEALTHCARE PROXY: His , Jordan. CODE STATUS: Full. SOURCE OF INFORMATION: History obtained from interview with the patient, discussion with Dr. Elam, and review of Dr. Elam's outpatient records, as well as review of [facility] records. RELIABILITY: Excellent. CHIEF COMPLAINT: Lightheadedness. HISTORY OF PRESENT ILLNESS: This is a 71-year-old man with recent, prolonged, complicated illness starting in the beginning of November 2016, after he was feeling poorly, he presented to [facility], had an abnormal EKG suggestive of an acute infarct. He had an echocardiogram that revealed [id number] LVH, global hypokinesis of the left ventricle, minor regional variation with an EF of 35% to 40% along with mild to moderately reduced RV systolic function. He underwent cardiac catheterization on 11/29/16 with nonobstructive disease; however, because of progressive elevated troponin, he was transferred to [facility] where he suffered a cardiac arrest, was revived, and ultimately underwent cardiac biopsy revealing large cell myocarditis, after which he had an ICD implanted and was started on aggressive immunosuppression including steroid, CellCept, and cyclosporine. He had subsequently being discharged and represented to Dr. Elam's office, found with elevated heart rates, in atrial flutter, which responded well to digoxin. He had an episode of hyperkalemia and started on fluticasone by Dr. Ware, and has been well controlled; however, now over the last 2 days, he has felt lightheaded especially when standing up. He called [place] and his digoxin was stopped 2 days ago. Today, he felt "uncomfortable when standing," also described it as a lightheadedness. Called the [place] and was directed to [facility] by Dr. Elam. He feels okay when lying down and has no complaints. He denies any chest pain or shortness of breath. He denies any recent fevers, chills, cough, dysuria, headache, diarrhea, myalgias, nausea, vomiting, or sick contacts. He notes a change in his sensation of taste, which has been accompanied by a decreased appetite, although he feels that he has been maintaining adequate p.o. intake by eating a bland diet. He notes he has been thirsty; however, has been drinking quite a lot of fluid except for yesterday. When seen by this author, he was comfortable and interactive, pleasant. He was seen in the emergency room by Dr. Elam, performed a transthoracic echocardiogram, was noted improved function since his last check. Additionally , Dr. Elam discussed plan of care with Dr. Ware in [place], after which hospitalist service was consulted for admission. The patient is noted to be in [facility] on EKG and telemetry. PAST MEDICAL HISTORY: Includes: 1. CORAL, on CPAP, starting pressures of 6. 2. COPD, which he notes is mild. 3. Large cell myocarditis. 4. Systolic CHF. 5. Hypertension. 6. Hyperlipidemia. 7. OA. 8. BPH. 9. Atrial flutter. MEDICATIONS: 1. Flomax 0.4 mg in the evening. 2. MetroCream 0.75% apply at bedtime as needed. 3. Atrovent 2 puffs inhaled every 6 hours as needed. 4. Fluticasone 2 sprays both nares daily. 5. Finasteride 5 mg daily. 6. Vitamin B12 1000 mcg daily. 7. Aspirin 81 mg daily. 8. Ascorbic acid 1000 mg daily. 9. Acetaminophen 500 mg every 6 hours as needed for pain. 10. Valcyte 900 mg daily. 11. Prednisone 5 mg daily. 12. Pantoprazole 40 mg daily. 13. CellCept 500 mg twice daily. 14. Fluconazole 200 mg daily. 15. Cyclosporine 150 mg twice daily. 16. Eliquis 5 mg twice daily. The patient had his digoxin stopped 2 days prior. ALLERGIES: To STATINS. FAMILY HISTORY: His mother from motor vehicle accident. His father's medical history is unknown. SOCIAL HISTORY: Quit tobacco 13 years prior, had a [id number] history of smoking. 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 He lives at home with his . No other illicit's. REVIEW OF SYSTEMS: As per HPI, otherwise all other systems negative. PHYSICAL EXAMINATION GENERAL: Sitting up in bed, interactive, pleasant, in no apparent distress. VITAL SIGNS: In the emergency room, blood pressure 129/74; heart rate is 80, in bigeminy; respiratory rate is 18; he is 98% on room air; his T-max is 98.2. HEENT: His oropharynx is clear. He has moist mucous membranes. His sclerae are anicteric. He has mildly elevated JVD below the angle of his jaw. LUNGS: Clear except for trace rales in the right apex. HEART: Regular rate and rhythm. ABDOMEN: Soft, nontender, nondistended. EXTREMITIES: Warm, well perfused. He has 2+ lower extremity edema. No rashes. NEUROLOGIC: He is alert and oriented x3. His cranial nerves II through XII are intact. PSYCH: He has no apparent anxiety, agitation, or depression. SKIN: Has left upper chest wall healing incision, is clear, dry, and intact from placement of his ICD. DIAGNOSTIC STUDIES/LAB DATA: Pertinent laboratory data reviewed. Digoxin level is 0.6. White blood cell count is 6, hemoglobin 9.2, platelets 107. INR is 1.3 with D-dimer 225. Troponin I is 0.07. Data reviewed: Transthoracic echocardiogram performed by Dr. Elam in the emergency room, verbally relayed with improving function from old report, to follow. Chest x-ray: No active cardiopulmonary disease. EKG: Ventricular bigeminy, normal limit axis, good R-wave progression. No ST or T- wave changes. ASSESSMENT AND PLAN: This is a 71-year-old man with complicated medical history including recent diagnosis of large cell myocarditis, on multiple immunosuppressants, status post recent cardiac arrest with post hospital stay, complicated by hyperkalemia and atrial fibrillation, resolved on fluticasone and digoxin respectively, now presenting with lightheadedness upon standing, found in bigeminy. 1. Concern is heart rates essentially 40 beats per minute, in bigeminy. His magnesium was low several days ago, can recheck now. The patient during interview and exam is going in and out of bigeminy. We will replace magnesium now and if remains in bigeminy, we will increase metoprolol dose by 50 mg this evening. We will hold fluticasone. Dr. Elam's discussion with Dr. Ware, can consider discontinuing or adjusting dose of cyclosporine in the future, likely at their institution and their direction if the patient continues to feel unwell. There is no indication that the patient is actively infected. 2. Obstructive sleep apnea. The patient will bring in his own machine. Continue with CPAP. 3. Atrial flutter, currently in bigeminy alternating with sinus. Continue metoprolol, potentially increased dose, maintain lytes as appropriate and apixaban. 4. Large cell myocarditis. Continue immunosuppressants as indicated above. 5. DVT prophylaxis. Apixaban. [id number]/[facility] #: [id number] MTDD
[2017-01-08] MEDS ORDERED: CMCS: Pantoprazole TAB (NF) 40 MG TAB PO SCH (07:30)
[2017-01-08] MEDS: VALGANCICLOVIR 450 MG PO SCH ×2 (07:48→08:16)
[2017-01-08] MEDS: Mycophenolate Mofetil CAP(*) 250 MG PO SCH (08:11)
[2017-01-08] MEDS: CYCLOSPORINE MODIFIED 25 MG PO SCH (08:11)
[2017-01-08] MEDS: Apixaban* 5 MG TAB PO SCH (08:11)
[2017-01-08] MEDS: cycloSPORINE Modified CAP(*) 100 MG PO SCH (08:16)
[2017-01-08] MEDS ORDERED: Metoprolol Succinate XL TAB* 50 MG PO ONE (08:53)
[2017-01-08] MEDS ORDERED: Finasteride TAB* 5 MG PO SCH (09:00)
[2017-01-08] MEDS ORDERED: Ascorbic Acid TAB* 500 MG PO SCH (09:00)
[2017-01-08] MEDS ORDERED: Fluticasone NASAL SPRAY 50MCG* 16 gm SPRAY BTL BOTH NARES SCH (09:00)
[2017-01-08] MEDS ORDERED: predniSONE TAB* 5 MG PO SCH (09:00)
[2017-01-08] MEDS ORDERED: Cyanocobalamin TAB* 500 MCG PO SCH (09:00)
[2017-01-08] MEDS ORDERED: Fluconazole 100 MG TAB* TAB PO SCH (09:00)
[2017-01-08] MEDS ORDERED: Aspirin EC Low Dose* 81 MG TAB.EC PO SCH (09:00)
[2017-01-08 12:33] VITALS: BP 105/49
[2017-01-08] MEDS ORDERED: Mycophenolate Mofetil TAB(*) 500 MG PO SCH (21:00)
--- NOTE | 2017-01-09 04:36 | DS ---
CC: Dr. Frederick; Dr. Elam; Dr. Ware * DISCHARGE SUMMARY: DATE OF ADMISSION: 01/07/17 DATE OF DISCHARGE: 01/08/17 PRIMARY CARE PROVIDER: Dr. Frederick. CANDY WAFFLE ASSEMBLER: Dr. Elam. Oxyacetylene Cutter at [place] is Dr. Ware. PRIMARY DIAGNOSIS: Near syncope. SECONDARY DIAGNOSES: Include: 1. Ventricular bigeminy. 2. Large cell myocarditis, on immunosuppressors. 3. Obstructive sleep apnea. 4. Chronic obstructive pulmonary disease. 5. Hypertension. 6. Systolic heart failure. 7. Hyperlipidemia. 8. Atrial flutter. MEDICATIONS ON DISCHARGE: Unchanged from admission, include: 1. Tamsulosin 0.4 mg in the evening. 2. MetroCream topically as needed. 3. Ipratropium 2 puffs every 6 hours as needed. 4. Fluticasone 2 sprays to both nares daily. 5. Finasteride 5 mg daily. 6. Vitamin B12 1000 mcg daily. 7. Aspirin 81 mg daily. 8. Vitamin C 8000 mg daily. 9. Acetaminophen 500 mg 4 times a day as needed. 10. Valcyte 900 mg daily. 11. Prednisone 5 mg daily. 12. Protonix 40 mg daily. 13. CellCept 500 mg twice daily. 14. Cyclosporine 150 mg twice daily. 15. Eliquis 5 mg twice daily. 16. Bactrim double strength, 1 tablet Tuesday, Tuesday, and Tuesday. 17. Metoprolol succinate 150 mg daily. Please note the increase in metoprolol from 100 mg to 150 mg daily and the discontinuation of fludrocortisone. PROCEDURES PERFORMED DURING HOSPITAL STAY: Echocardiogram performed by Dr. Elam in the emergency room indicated left systolic function lower limit of normal and estimated 50% to 55%. Left ventricular septal wall motion abnormality observed, possibly due to left bundle branch block. Right ventricular wall thickness is mildly increased with systolic function mildly reduced. Pacemaker wires visualized in the right ventricle, trace TR. Interval improvement in EF compared to [facility] report from August 2016 when it was 34. HISTORY OF PRESENT ILLNESS AND HOSPITAL COURSE: This is a 71-year-old man with past medical history as outlined in the history of present illness on the day of admission, which is complicated and includes recent admission and transfer to a tertiary center, which was complicated by cardiac arrest and resuscitation , ultimately elucidating large cell myocarditis, after which he received an ICD and was started on immunosuppressors, presented to the hospital after having sensation of feeling lightheaded when standing at home. He was found in ventricular bigeminy and had increased metoprolol during the course of hospital stay as well as electrolyte replacement. Additionally, fludrocortisone was held on admission. He remained predominantly in ventricular bigeminy during the course of hospital stay; however, had no other abnormal arrhythmias. During the course of hospital stay the patient did remain asymptomatic, both with walking to the bathroom and lying in bed. It was felt that his symptoms were either mild dehydration or in the setting of medication side effect from fludrocortisone. He had no other evidence of active infection or underlying cardiac changes. He is discharged to follow up with Dr. Elam as well as Dr. Frederick and has been asked to follow up with Dr. Ware on his own. There was discussion between Dr. Elam and Dr. Ware that should his symptoms continue in the future, his cyclosporine dose may need to be adjusted, which was not performed here secondary to the alleviation of his symptoms. There were no complications during the course of hospital stay. Reasons to return to the hospital included, but not limited to recurrent or worsening symptoms, chest pain, shortness of breath, nausea, vomiting, lightheadedness, loss of consciousness, or near loss of consciousness, inability to obtain or tolerate his medications were discussed with the patient. He acknowledged understanding. TIME SPENT: Greater than 60 minutes were spent on discharge of the patient, greater than half was spent [id number] with the patient. [id number]/[facility] #: [id number] MTDD
== END 2017-01-08 13:00 | disposition home or self-care (01) ==
LOC: ED 13:20 → MEDTELE 16:48
PROVIDERS: ADMIT Internal Medicine; ATTEND Internal Medicine
DX: R55 Syncope and collapse (principal); R00.8 Other abnormalities of heart beat; I51.4 Myocarditis, unspecified; G47.33 Obstructive sleep apnea (adult) (pediatric); R42 Dizziness and giddiness; J44.9 Chronic obstructive pulmonary disease, unspecified; I11.0 Hypertensive heart disease with heart failure; I50.20 Unspecified systolic (congestive) heart failure; E78.5 Hyperlipidemia, unspecified; I48.92 Unspecified atrial flutter; I45.10 Unspecified right bundle-branch block; Z79.01 Long term (current) use of anticoagulants; Z79.899 Other long term (current) drug therapy; Z87.891 Personal history of nicotine dependence; Z95.810 Presence of automatic (implantable) cardiac defibrillator
CPT/HCPCS: 36415; 71010; 80053; 80162; 80197; 81003; 83605; 83735; 84484; 85025; 85379; 85610; 85730; 87040; 93005; 93308; 96365; 96366; 99284; A9270-GY; G0378; J3475; J7502; J7512; J7515

== ENCOUNTER 2017-05-21 11:09 | Observation (INO) | payer MEDICARE ==
[2017-05-21 11:53] LABS: Hematocrit 35 % (42-52); Hemoglobin 11.5 g/dl (14.0-18.0); Mean Corpuscular HGB Conc 33 g/dl (31-36); Mean Corpuscular Hemoglobin 28 pg (27-31); Mean Corpuscular Volume 86 fL (80-94); Mean Platelet Volume 9 um3 (7.4-10.4); Red Blood Count 4.07 10^6/ul (4.0-5.4); Red Cell Distribution Width 14 % (10.5-15); White Blood Count 10.1 10^3/ul (3.5-10.8)
[2017-05-21 12:09] LABS: Albumin 3.9 g/dL (3.2-5.2); BUN/Creatinine Ratio 22.4 (8-20); Calcium 9.4 mg/dL (8.6-10.3); EGFR African American 60.9 (>60); EGFR Non-African American 47.4 (>60); Globulin 2.8 g/dL (2-4); Potassium 4.6 mmol/L (3.5-5.0); Total Bilirubin 0.7 mg/dL (0.2-1.0); Total Protein 6.7 g/dL (6.4-8.9)
[2017-05-21 12:11] LABS: Troponin I 0.01 ng/mL (<0.04)
--- NOTE | 2017-05-21 12:15 | RAD ---
Indication: Shortness of breath. Single frontal view of the chest performed at 1155 hours was reviewed. Comparison is made with previous exam dated January 07, 2017. No mediastinal shift is noted. Heart is of normal size and configuration. Lung sarmiento appear clear. Pacemaker leads are in place. IMPRESSION: NO ACTIVE CARDIOPULMONARY DISEASE IS NOTED.
[2017-05-21 12:19] LABS: C Reactive Protein 89.83 mg/L (< 5.00); Magnesium 1.6 mg/dL (1.9-2.7)
[2017-05-21] MEDS ORDERED: Morphine INJ* 4 MG/ML 1 ML CARPUJECT IV ONE (12:50)
[2017-05-21] MEDS ORDERED: Ondansetron INJ* 2 MG/ML VIAL IV ONE ×2 (12:50→15:46)
[2017-05-21] MEDS ORDERED: Furosemide IV* 10 MG/ML VIAL (40 MG) IV ONE (12:50)
[2017-05-21] MEDS ORDERED: Aspirin Low Dose CHEW TAB* 81 MG PO ONE (12:50)
[2017-05-21 13:30] LABS: TSH (Thyroid Stimulating Horm) 1.25 mcIU/mL (0.34-5.60)
[2017-05-21] MEDS ORDERED: Fluticasone NASAL SPRAY 50MCG* 16 gm SPRAY BTL BOTH NARES PRN (14:15)
[2017-05-21] MEDS ORDERED: NF:Ipratropium HFA INHALER(NF) (ALTERNATIVE = NEBS) INH PRN (14:15)
[2017-05-21] MEDS ORDERED: Magnesium Sulfate IV* 3 GM in NS 0.9% 100 ML* 100 ML IVPB ONE (14:15)
[2017-05-21 14:56] LABS: Erythrocyte Sed Rate 44 mm/Hr (0-40)
[2017-05-21] MEDS ORDERED: Metoprolol Succinate XL TAB* 50 MG PO SCH ×2 (15:00→17:49)
[2017-05-21] MEDS ORDERED: Metoprolol Succinate XL TAB* 100 MG PO SCH (15:00)
[2017-05-21] MEDS ORDERED: Ondansetron INJ* 2 MG/ML VIAL ONE (15:47)
[2017-05-21] MEDS: Omeprazole CAP* 20 MG PO SCH (17:27)
[2017-05-21] MEDS: HYDROcodone/ACETAMIN 5-325 MG* 1 TAB PO PRN (17:27)
[2017-05-21] MEDS: Cyanocobalamin TAB* 500 MCG PO SCH (17:27)
[2017-05-21] MEDS: predniSONE TAB* 5 MG PO SCH (17:27)
[2017-05-21] MEDS: Aspirin EC Low Dose* 81 MG TAB.EC PO SCH (17:28)
[2017-05-21] MEDS: Fluconazole 100 MG TAB* TAB PO SCH (17:28)
[2017-05-21] MEDS ORDERED: Ipratropium 0.5MG/2.5ML NEB* 0.5 MG/2.5 ML NEB.SOLN INH PRN (17:47)
[2017-05-21] MEDS ORDERED: Tamsulosin CAP* 0.4 MG PO SCH (18:00)
[2017-05-21] MEDS: VALGANCICLOVIR 450 MG PO SCH (18:00)
[2017-05-21] MEDS ORDERED: Iodixanol* (CONTRAST) 320 MG/ML 100 ML SDV IV ONE (19:05)
--- NOTE | 2017-05-21 19:43 | ED ---
Dar Dalton Natalie, scribed for Edgard Hinton MD on 05/21/17 at 1204 . Shortness of Breath - HPI Summary HPI Summary: The pt is a 71 y/o M presenting to the ED c/o SOB starting two days ago. The pain is aggravated by lying down and is alleviated by sitting in upright position. Pt additionally c/o chest and epigastric pressure and tightness. The patient has treated the pain with nothing HOME SPECIALIST. Pt has hx of COPD, giant cell myocarditis, HTN, and he has a pacemaker. - History of Current Complaint Chief Complaint: EDShortnessOfBreath Time Seen by Provider: 05/21/17 11:41 Hx Obtained From: Patient Onset/Duration: Lasting Days - started two days ago, Still Present Current Severity: Mild Dyspnea At: Rest Aggrevating Factors: Other - lying down Alleviating Factors: Upright Position Associated Signs & Symptoms: Chest Pain Unrelated to Cough - Allergy/Home Medications Allergies/Adverse Reactions: Allergies Allergy/AdvReac Type Severity Reaction Status Date / Time Statins Allergy Joint Pain Verified 11/29/16 11:17 Home Medications: Home Medications Cetirizine HCl [Allergy 24Hour Indoor/Out] 10 mg PO DAILY 05/21/17 [History Confirmed 05/21/17] Furosemide [Lasix] 20 mg PO DAILY PRN 05/21/17 [History Confirmed 05/21/17] Valsartan [Valsartan] 40 mg PO BID 05/21/17 [History Confirmed 05/21/17] PMH/Surg Hx/FS Hx/Imm Hx Previously Healthy: No Endocrine/Hematology History: Denies: Hx Anemia, Hx Unexplained Bleeding Cardiovascular History: Reports: Hx Hypertension, Hx Pacemaker/ICD, Other Cardiovascular Problems/Disorders - PVCS, 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, NEG CATH JUL 16, GIANT CELL MYOCARDITIS Denies: Hx Aneurysm, Hx Angina, Hx Angioplasty, Hx Auto Implanted Cardiovert Defib, Hx Cardiac Arrest, Hx Cardiomegaly, Hx Congenital Heart Disease, Hx Congestive Heart Failure, Hx Coronary Artery Disease, Hx Deep Vein Thrombosis, Hx Embolism, Hx Hypercholesterolemia, Hx Hypotension, Hx Peripheral Vascular Disease, Hx Rheumatic Fever, Hx Syncope, Hx Valvular Heart Disease Respiratory History: Reports: Hx Chronic Obstructive Pulmonary Disease (COPD), Hx Pneumonia, Hx Sleep Apnea - CPAP Denies: Hx Asthma, Hx Chronic Bronchitis, Hx Cystic Fibrosis, Hx Lung Cancer , Hx Pleural Effusion, Hx Pulmonary Edema, Hx Pulmonary Embolism, Hx Seasonal Allergies History: Reports: Hx Benign Prostatic Hyperplasia, Hx Kidney Stones Denies: Hx Acute Renal Failure, Hx Chronic Renal Failure, Hx Dialysis, Hx Kidney Infection, Other Problems/Disorders Musculoskeletal History: Reports: Hx Arthritis - in the back, Hx Back Problems Denies: Hx Bursitis, Hx Congenital Bone Abnormalities, Hx Fibromyalgia, Hx Gout, Hx Orthopedic Injury, Hx Osteoporosis, Hx Scoliosis, Hx Tendonitis, Other Musculoskeletal History Sensory History: Reports: Hx Contacts or Glasses - reading glasses Denies: Hx Eye Injury, Hx Eye Prosthesis, Hx Glaucoma, Hx Legally Blind, Hx Macular Degeneration, Hx Vision Problem, Hx Deafness, Hx Hearing Aid, Hx Hearing Problem, Other Sensory Impairments Comment Only: Hx Cataracts - S/P BILAT ARTIFICIAL LENSES Opthamlomology History: Reports: Hx Contacts or Glasses - reading glasses Denies: Hx Eye Injury, Hx Eye Prosthesis, Hx Glaucoma, Hx Legally Blind, Hx Macular Degeneration, Hx Vision Problem, Other Sensory Impairments Comment Only: Hx Cataracts - S/P BILAT ARTIFICIAL LENSES - Surgical History Surgery Procedure, Year, and Place: [place] [facility] [place]ator [place] [facility] [place] [facility] [place]x Anesthesia Reactions: No Infectious Disease History: No Infectious Disease History: Denies: Hx Tuberculosis, Traveled Outside the [place] in Last 30 Days - Family History Known Family History: Negative: Cardiac Disease, Hypertension, Diabetes - Social History Alcohol Use: None Substance Use Type: Reports: None Smoking Status (MU): Former Smoker Type: Cigarettes Have You Smoked in the Last Year: No Review of Systems Negative: Fever Positive: Other - chest and epgigastric tightness and pressure Positive: Shortness Of Breath All Other Systems Reviewed And Are Negative: Yes Physical Exam Triage Information Reviewed: Yes Vital Signs On Initial Exam: Initial Vitals Temp Pulse Resp BP Pulse Ox 97.1 F 88 17 121/67 99 05/21/17 11:12 05/21/17 11:12 05/21/17 11:12 05/21/17 11:12 05/21/17 11:12 Vital Signs Reviewed: Yes Appearance: Positive: Well-Appearing, No Pain Distress Skin: Positive: Warm, Skin Color Reflects Adequate Perfusion, Dry Head/Face: Positive: Normal Head/Face Inspection Eyes: Positive: EOMI, LINK ENT: Positive: Normal ENT inspection Neck: Positive: Supple, Nontender Respiratory/Lung Sounds: Positive: Breath Sounds Present, Rales Cardiovascular: Positive: RRR Abdomen Description: Positive: Nontender, Soft Bowel Sounds: Positive: Present Male Genital Exam: Positive: normal genitalia Musculoskeletal: Positive: Strength/ROM Intact, Other - trace pedal edema Neurological: Positive: Normal, Sensory/Motor Intact, Alert, Oriented to Person Place, Time Psychiatric: Positive: Affect/Mood Appropriate - Cate Coma Scale Coma Scale Total: 15 Diagnostics - Vital Signs Vital Signs Temp Pulse Resp BP Pulse Ox 05/21/17 11:12 97.1 F 88 17 121/67 99 - Laboratory Lab Results: Lab Results 05/21/17 Range/Units 11:35 WBC 10.1 (3.5-10.8) 10^3/ul RBC 4.07 (4.0-5.4) 10^6/ul Hgb 11.5 L (14.0-18.0) g/dl Hct 35 L (42-52) % MCV 86 (80-94) fL MCH 28 (27-31) pg MCHC 33 (31-36) g/dl RDW 14 (10.5-15) % Plt Count 127 L (150-450) 10^3/ul MPV 9 (7.4-10.4) um3 Neut % (Auto) 88.5 H (38-83) % Lymph % (Auto) 5.1 L (25-47) % [place] % (Auto) 5.3 (1-9) % Eos % (Auto) 0.5 (0-6) % Baso % (Auto) 0.6 (0-2) % Absolute Neuts (auto) 8.9 H (1.5-7.7) 10^3/ul Absolute Lymphs (auto) 0.5 L (1.0-4.8) 10^3/ul Absolute Monos (auto) 0.5 (0-0.8) 10^3/ul Absolute Eos (auto) 0 (0-0.6) 10^3/ul Absolute Basos (auto) 0.1 (0-0.2) 10^3/ul Absolute Nucleated RBC 0.01 10^3/ul Nucleated RBC % 0.1 Result Diagrams: 05/21/17 11:35 05/21/17 11:35 Lab Statement: Any lab studies that have been ordered have been reviewed, and results considered in the medical decision making process. - Radiology CXR Xray Interpretation: No Acute Changes - No active cardiopulmonary disease is noted. ED physician has reviewed this report. Radiology Interpretation Completed By: Radiologist - EKG 11:25 Cardiac Rate: NL EKG Rhythm: Sinus Rhythm - 91 BPM EKG Interpretation: RBBB. Nml ST. Multiple PVCs. Course/Dx - Course Course Of Treatment: The pt is a 71 y/o M presenting to the ED c/o SOB starting two days ago. The pain is aggravated by lying down and is alleviated by sitting in upright position. Pt additionally c/o chest and epigastric pressure and tightness. The patient has treated the pain with nothing HOME SPECIALIST. Pt has hx of COPD , giant cell myocarditis, HTN, and he has a pacemaker. DISCUSSED RESULTS WITH PATIENT. ADMIT HOSPITALIST. CRITICAL CARE TIME LESS THAN 30 MINUTES. BP is normal and HTN is controlled. Allergies noted. Medications reviewed. - Diagnoses Provider Diagnoses: Chest pain, Dyspnea - Physician Notifications Discussed Care of Patient With: Armani Mcadams Time Discussed With Above Provider: 13:30 Instructed by Provider To: Admit As Inpatient Discharge - Discharge Plan Condition: Stable Disposition: [facility]MITT[facility] TO [facility] The documentation as recorded by the Dar poe Natalie accurately reflects the service I personally performed and the decisions made by me, Edgard Hinton MD.
[2017-05-21] MEDS: Mycophenolate Mofetil TAB(*) 500 MG PO SCH (20:04)
[2017-05-21] MEDS: cycloSPORINE Modified CAP(*) 100 MG PO SCH (20:04)
[2017-05-21] MEDS: Apixaban* 5 MG TAB PO SCH (20:04)
--- NOTE | 2017-05-21 20:15 | RAD ---
Indication: Renal calculus. CT of the abdomen and pelvis was performed without oral or IV contrast administration. Coronal and sagittal reconstructed images were obtained. Lung bases demonstrate some minimal pleural thickening in the lung bases. Small nodule and scarring is noted in the lung bases. Likely atelectasis in the lower lobes posteriorly. Heart is enlarged with suggestion of either pericardial thickening or small pericardial effusion. Liver is normal in size. Low density lesion in the dome of the liver measures up to 3 cm. Other lesions are noted in the left lobe of liver measuring 2.7 and 1.9 cm. Lesions in the medial segment of left lobe measures 11 mm. Inferior tip of the right lobe liver lesion measures 19 mm. The gallbladder demonstrates no calcified gallstones. No pericholecystic fluid or wall thickening is identified. Pancreas demonstrates no mass or pancreatic ductal location. The spleen is normal in size. No adrenal lesions are noted. The kidneys demonstrate multiple parapelvic cysts. There is a calculus in the lower pole of the left kidney measuring up to 9 mm but is nonobstructing. Additional calculi in the upper pole of the left kidney measures up to 10 mm 11 mm. No hydroureter is noted. Cortical cysts are also noted in both kidneys. No retroperitoneal adenopathy is noted. There is an atherosclerotic aorta with no evidence of abdominal aortic aneurysm. There is right common iliac artery aneurysm measuring up to 2.1 cm on the right and 2.3 cm on the left. External iliac arteries demonstrates atherosclerosis. The prostate is markedly enlarged. The urinary bladder is partially collapsed. No hernias are noted. No hernias are noted. Multilevel degenerative disc disease is noted. IMPRESSION: Multiple parapelvic cysts with nonobstructing calculi in the left kidney. No hydronephrosis is noted. Bilateral common iliac artery aneurysms measuring up to 2.1 cm on the right and 2.3 cm on the left. Several cortical kidney and hepatic cysts are noted. Cardiomegaly with pericardial thickening or small pericardial effusion. Marked prostate enlargement.
--- NOTE | 2017-05-21 20:28 | RAD ---
Indication: Evaluate for pulmonary embolus. Contrast: 91 mL of Visipaque 320 was given according to hospital protocol. CTA of the chest was performed after IV contrast administration. Coronal and sagittal reconstructed images were obtained. The pulmonary arterial tree is well opacified. There are no filling defects present to suggest pulmonary embolus. The aorta demonstrates no evidence of aortic dissection. No evidence of aneurysmal dilatation of the aorta is noted. The heart demonstrates small pericardial effusion and/or pericardial thickening. The trachea and major bronchi appear patent. Lung sarmiento demonstrate left basilar atelectasis. The abdominal organs demonstrates multiple hepatic cysts. The bony structures demonstrates degenerative changes throughout the thoracic spine. IMPRESSION: No evidence of pulmonary embolus is noted. No evidence of thoracic aortic dissection or aneurysmal dilatation. Left basilar atelectasis is noted. Multiple hepatic cysts are noted. Cardiomegaly with pericardial effusion and likely pericardial thickening.
[2017-05-21 21:35] LABS: Urine Bacteria Absent (Absent); Urine Bilirubin Negative (Negative); Urine Glucose Negative (Negative); Urine Nitrite Negative (Negative)
--- NOTE | 2017-05-22 01:41 | HP ---
CC: Dr. Ware; Dr. Elam; Dr. Frederick * HISTORY AND PHYSICAL: DATE OF ADMISSION: 05/21/17 PRIMARY CARE PROVIDER: Sil Frederick MD CARDIOLOGISTS: Dr. Elam and Dr. Ware at [facility]. ATTENDING PHYSICIAN: Dr. Ashley * (DICTATED BY MATTHEW WHITLEY NP) CHIEF COMPLAINT: Pleuritic chest pain. HISTORY OF PRESENT ILLNESS: Mr. Bolaños is a 71-year-old man with past medical history significant for giant cell myocarditis diagnosed in November 2016 as well as obstructive sleep apnea, COPD, hypertension, hyperlipidemia. He presented to the emergency room today with complaint of pleuritic chest pain. The patient states that on and Tuesday, he had 2 doctors appointment that required 2 full days of driving. The patient spent most of and Tuesday in the car. The patient states that evening, he woke up in the middle of the night with chest pain along his anterior chest radiating to the sides. The patient states that the pain was worse lying down and also with deep breath. He reported some increased shortness of breath, but only because he was taking shallow breathing. The patient denied any leg swelling. The patient states he has never had any pain like this before. He took some Tylenol , but it did not get any better. Today, the patient went to get evaluated by his primary care provider, who did a flu swab, which was negative. She sent him to the emergency room for further evaluation with high suspicion for pulmonary embolism. In the emergency room, the patient had fairly normal lab work. He had a normal white count. Creatinine was baseline at 1.4. The patient did have an elevated CRP, yet a normal troponin. BNP was 163. The patient had a D-dimer, which was less than 200. Given his history of myocarditis, elevated CRP, and continued pleuritic chest pain, Hospitalists were asked to evaluate the patient for admission. The patient will be on placed on observation for chest pain. PAST MEDICAL HISTORY: Giant cell myocarditis; obstructive sleep apnea; COPD; hypertension; hyperlipidemia; BPH; aflutter, on apixaban; osteoarthritis. CURRENT MEDICATIONS: Include: 1. Flomax 0.4 mg oral in the evening. 2. Prednisone 5 mg oral daily. 3. Bactrim 800/160 five tablets oral daily. 4. Cyclosporine 100 mg oral twice daily. 5. Protonix 40 mg oral in the morning. 6. Sulfa 500 mg oral twice daily. 7. Metronidazole topical 0.75% at bedtime as needed. 8. Toprol-XL 150 mg oral daily. 9. Atrovent 2 puffs inhaled every 6 hours as needed. 10. Fluticasone 2 sprays both nares as needed. 11. Fluconazole 200 mg oral daily. 12. Proscar 5 mg oral daily. 13. Vitamin B12 1000 mcg oral daily. 14. Cetirizine 10 mg oral daily. 15. Aspirin 81 mg oral daily. 16. Vitamin C 1000 mg oral daily. 17. Eliquis 5 mg oral twice daily. 18. Extra Strength Tylenol 500 mg every 6 hours as needed. 19. Lasix 20 mg oral daily as needed. ALLERGIES: To STATIN. FAMILY HISTORY: Mother from a motor vehicle accident. Father's medical history is unknown. SOCIAL HISTORY: The patient has a [id number] history of smoking. He is a retired finance business manager. He lives at home with his , Lisbeth Bolaños. She would be the surrogate decision maker in the event the patient cannot make decisions for himself. REVIEW OF SYSTEMS: I performed a 14-point review of systems. All the pertinent positives and negatives are mentioned in the history of present illness. The remaining review of systems is negative. PHYSICAL EXAMINATION GENERAL APPEARANCE: The patient was alert, appeared to be in no apparent distress. VITAL SIGNS: Temperature 97.1, heart rate 94, respiratory rate 22, oxygen saturation 95%, blood pressure 111/59. HEENT: Normocephalic/atraumatic. Pupils were equal and reactive to light. Extraocular movements were intact. NECK: Supple. There was no lymphadenopathy noted. RESPIRATORY: There was no accessory muscle use. Lungs were clear to auscultation. CARDIAC: S1, S2 were crisp. Rate and rhythm were regular. There were no murmurs, rubs, or gallops heard. ABDOMEN: Soft, nontender, nondistended. There are bowel sounds x4. EXTREMITIES: There was +2 lower extremity edema. DP and PT pulses were 2+ and symmetric. MUSCULOSKELETAL: There is no clubbing or cyanosis noted. The patient exhibits equal strength in all extremities. NEURO: Cranial nerves II through XII are intact. The patient moves all extremities. Lower extremities are intact to light touch. SKIN: There were no rashes or abnormalities seen. PSYCH: The patient is alert and oriented x3. LABORATORY DATA/DIAGNOSTIC STUDIES: Sodium 138, potassium 4.6, chloride 106, CO2 26, BUN 33, creatinine 1.4, glucose 140. Lactic acid 1.1. Magnesium 1.6. Calcium 9.4. Liver function tests within normal limits. CRP 89.83. BNP 163. White blood cell count 10.1, hemoglobin 11.5, hematocrit 35, platelet count 127. INR 1.3. D-dimer less than 200. Chest x-ray shows no active cardiopulmonary disease. EKG from today shows right bundle branch block with PVCs. IMPRESSION: This is a 71-year-old male with past medical history significant for giant cell myocarditis; currently on immunosuppressants; history of atrial flutter, on Eliquis as well as hypertension, chronic obstructive pulmonary disease, obstructive sleep apnea, who presented to the emergency room with a complaint of pleuritic chest pain. The patient will be placed on observation for his pleuritic chest pain. 1. Pleuritic chest pain. Etiology is unclear. This could be simple as musculoskeletal or could be worsening giant cell myocarditis. The patient does have an elevated CRP, yet no obvious sign of infection. Initially, the thinking was possibly of pulmonary embolism, yet the patient has a negative D- dimer. The patient does have elevated creatinine; but a normal GFR so he will have a CTA to definitively rule out a pulmonary embolism. For the time being, the patient will be placed on telemetry and will have serial troponins to rule out acute coronary syndrome. He will have a repeat EKG in the morning. An echocardiogram will be checked in the morning to assess heart function. If the echocardiogram shows decreased heart function, I plan to contact his terminal operations supervisor up at [place] to have further recommendations for management. Without evidence of obvious infection, the elevated CRP is worrisome and could be worsening giant cell myocarditis. His sed rate is normal. For the time being, his pain will be controlled with Tylenol and Gibson[place] as needed. 2. Giant cell myocarditis. The patient will continue all of his immunosuppressants that include CellCept, cyclosporine, and prednisone. In addition, his prophylactic antibiotics of fluconazole and Bactrim will continue. 3. Hypertension. The patient takes valsartan 40 mg twice a day. For now, blood pressure is on the lower side and this will be held. 4. Chronic obstructive pulmonary disease. Home Atrovent, we will continue. 5. Obstructive sleep apnea. The patient's daughter will bring his home CPAP. 6. DVT prophylaxis. The patient will have subcu heparin. 7. Code status is full. TIME SPENT: Time for this admission was 60 minutes and 35 minutes were spent with the patient discussing medications, past medical history, and events leading up to his arrival to the emergency room. MATTHEW WHITLEY NP [id number]/CPS #: [id number] CHANDLER
[2017-05-22 05:00] LABS: Hematocrit 31 % (42-52); Hemoglobin 10.1 g/dl (14.0-18.0); Mean Corpuscular HGB Conc 33 g/dl (31-36); Mean Corpuscular Hemoglobin 28 pg (27-31); Mean Corpuscular Volume 85 fL (80-94); Mean Platelet Volume 10 um3 (7.4-10.4); Red Cell Distribution Width 15 % (10.5-15); White Blood Count 8.1 10^3/ul (3.5-10.8)
[2017-05-22 05:15] LABS: BUN/Creatinine Ratio 22.4 (8-20); C Reactive Protein 179.67 mg/L (< 5.00); Calcium 8.8 mg/dL (8.6-10.3); EGFR African American 54.8 (>60); EGFR Non-African American 42.6 (>60); Magnesium 2.3 mg/dL (1.9-2.7); Potassium 4.4 mmol/L (3.5-5.0)
[2017-05-22] MEDS: Fluconazole 100 MG TAB* TAB PO SCH (08:37)
[2017-05-22] MEDS: Omeprazole CAP* 20 MG PO SCH (08:37)
[2017-05-22] MEDS: Aspirin EC Low Dose* 81 MG TAB.EC PO SCH (08:37)
[2017-05-22] MEDS: cycloSPORINE Modified CAP(*) 100 MG PO SCH (08:37)
[2017-05-22] MEDS: Apixaban* 5 MG TAB PO SCH (08:37)
[2017-05-22] MEDS: VALGANCICLOVIR 450 MG PO SCH (08:38)
[2017-05-22] MEDS: predniSONE TAB* 5 MG PO SCH (08:38)
[2017-05-22] MEDS: Mycophenolate Mofetil TAB(*) 500 MG PO SCH (08:38)
[2017-05-22] MEDS ORDERED: Ascorbic Acid TAB* 500 MG PO SCH (09:00)
[2017-05-22] MEDS ORDERED: Finasteride TAB* 5 MG PO SCH (09:00)
[2017-05-22] MEDS: Cyanocobalamin TAB* 500 MCG PO SCH (09:54)
[2017-05-22] MEDS ORDERED: NS 0.9% 1000 ML* 1,000 ML IV SCH (11:15)
[2017-05-22 11:30] VITALS: BP 132/64
[2017-05-22] MEDS: HYDROcodone/ACETAMIN 5-325 MG* 1 TAB PO PRN (11:45)
--- NOTE | 2017-05-22 13:59 | ECHO ---
Patient: LJ CLAY [facility] Rec#: [id number] : 1945 Date: 05/22/2017 Age: 71y Height: 177.8 cm / 70.0 in Weight: 108.86 kg / 239.9 lbs Sex: M BSA: 2.26 Room#: 433 Admit Date#: 05/21/2017 Type: Inpatient Referring: Rula Diane NP Reading: Laureano Elam MD Electron Beam Photo Mask Technician: Clare Li,DARCYCS,RDMS CC: Sil Frederick MD CC: Alejandra Ware MD Transthoracic Echocardiogram Indication: Giant cell myocarditis, CP BP: 103/56 HR: 65 Rhythm: NSR Findings History: Giant cell myocarditis, CORAL, COPD, HTN, HLD, AFlutter, AICD Technical Comments: The study quality is fair. Left Ventricle: The left ventricular chamber size is normal. Mild to moderate concentric left ventricular hypertrophy is observed. The estimated ejection fraction is 50-55%. mild relative apical-lateral and inferior hypokinesis. Abnormal left ventricular diastolic filling is observed, consistent with impaired relaxation. The mid inferior, apical lateral, and apical inferior wall segments are hypokinetic (score 2). Overall wallmotion score index is 1.19 Left Atrium: The left atrium is moderately dilated. Right Ventricle: The right ventricular chamber size and systolic function are within normal limits. The right ventricle wall thickness is mildly increased.6.4 mm A pacemaker wire is visualized in the right ventricle. Right Atrium: The right atrium is mildly dilated. A pacemaker wire is visualized in the right atrium. Aortic Valve: The aortic valve is trileaflet. The aortic valve leaflets are mildly thickened. There is mild aortic regurgitation. There is no evidence of aortic stenosis. Mitral Valve: The mitral valve leaflets are mildly thickened. There is mild mitral regurgitation. There is no evidence of mitral stenosis. Tricuspid Valve: The tricuspid valve leaflets are normal. There is trace tricuspid regurgitation. Unable to estimate the right ventricular systolic pressure. Pulmonic Valve: The pulmonic valve appears normal. There is a trace pulmonic regurgitation. There is mild pulmonic stenosis. Pericardium: A trivial pericardial effusion is visualized. Aorta: There is mild dilatation of the ascending aorta. There is no dilatation of the aortic arch. There is mild dilatation of the aortic root. Pulmonary Artery: The main pulmonary artery appears normal. Venous: The inferior vena cava appears normal in size. There is an approximate 50% respiratory change in the inferior vena cava dimension. Conclusions Mild to moderate concentric left ventricular hypertrophy is observed. The estimated ejection fraction is 50-55%, closer to 55%. Mild relative apical-lateral and inferior hypokinesis. Abnormal left ventricular diastolic filling is observed, consistent with impaired relaxation. The right ventricle wall thickness is mildly increased. The right atrium is mildly dilated. The left atrium is moderately dilated. The aortic valve leaflets are mildly thickened. There is mild aortic regurgitation. There is mild mitral regurgitation. There is mild dilatation of the ascending aorta. Similar to the limited study of 12/2016 which reported an EF of 50-55%. Measurements Name Value Normal Range RVIDd (AP) 2D 3.2 cm (0.9 - 2.6) RVDdMajor (2D) 3.4 cm (2.2 - 4.4) RAd ISD 4CH 5.3 cm (3.4 - 4.9) RA (A4C)W 4.3 cm (2.9 - 4.6) IVSd (2D) 1.4 cm (0.6 - 1) LVPWd (2D) 1.4 cm (0.6 - 1) LVIDd (2D) 4.8 cm (3.6 - 5.4) LVIDs (2D) 3.3 cm - LV FS (2D) 32 % (25 - 45) Aortic Annulus 2.2 cm (1.4 - 2.6) Ao root diameter (2D) 3.7 cm (2.1 - 3.5) Ascending Ao 3.9 cm (2.1 - 3.4) Aortic arch 3 cm (1.8 - 3.4) LA dimension (AP) 2D 3.9 cm (2.3 - 3.8) LAd ISD 4CH 5.4 cm (2.9 - 5.3) LA ISD 4CH W 4.2 cm (2.5 - 4.5) Name Value Normal Range LA ESV SP 4CH (A/L) 72.99 ml - LA ESV SP 2CH (A/L) 84.73 ml - LA ESV BP (A/L) 85.44 ml - LA ESV BP (A/L) index 38 ml/m2 - LA ESV SP 4CH (MOD) 68.68 ml - LA ESV SP 2CH (MOD) 80.94 ml - Name Value Normal Range MV E-wave Vmax 0.6 m/sec - MV deceleration time 267 msec - MV A-wave Vmax 0.8 m/sec - MV E:A ratio 0.8 ratio - P. vein S-wave Vmax 0.5 m/sec - P. vein D-wave Vmax 0.7 m/sec - P. vein S:D Vmax ratio 0.8 ratio - P. vein A-wave duration 65.7 msec - LV septal e' Vmax 0.05 m/sec - LV lateral e' Vmax 0.05 m/sec - LV E:e' septal ratio 14 ratio - LV E:e' lateral ratio 14 ratio - Name Value Normal Range AV Vmax 1.6 m/sec - AV VTI 30.6 cm - AV peak gradient 10 mmHg - AV mean gradient 5.9 mmHg - LVOT Vmax 1.2 m/sec - LVOT VTI 21.6 cm - LVOT peak gradient 6 mmHg - LVOT mean gradient 2.6 mmHg - KATHLEEN Vmax 0.6 m/sec - Name Value Normal Range RAP 8 mmHg - IVC diameter 1.7 cm - Name Value Normal Range PV Vmax 0.8 m/sec - PV peak gradient 2.6 mmHg - Wallmotion BAS Normal BA Normal BAL Normal DARELL Normal BI Normal BIS Normal MAS Normal MA Normal MAL Normal MIL Normal KS Hypokinetic MIS Normal Normal AA Normal AL Hypokinetic AI Hypokinetic APEX Hypokinetic
[2017-05-22] MEDS ORDERED: VALGANCICLOVIR 450 MG PO SCH (14:00)
--- NOTE | 2017-05-22 14:48 | DCNOTE ---
Subjective Date of Service: 05/22/17 Interval History: Patient seen and examined at bedside. Patient states pain has improved significantly. He still has back pain. Every time he drives his back pain get significantly worse. Denies SOB and able to take deep breaths. Family History: Unchanged from Admission Social History: Unchanged from Admission Past Medical History: Unchanged from Admission Objective Active Medications: Hydrocodone Bitart/Acetaminophen (Paisley 5-325 Tab*) 1 tab PO Q6H PRN Apixaban (Eliquis*) 5 mg PO BID [facility] Ascorbic Acid (Vitamin C Tab*) 1,000 mg PO DAILY [facility] Aspirin (Aspirin Ec Low Dose*) 81 mg PO DAILY [facility] Cyanocobalamin (Vitamin B12 Tab*) 1,000 mcg PO DAILY [facility] Cyclosporine (Modified) (Neoral Cap(*)) 100 mg PO BID [facility]UART Finasteride (Proscar Tab*) 5 mg PO DAILY [facility] Fluconazole (Diflucan 100 Mg Tab*) 200 mg PO DAILY [facility] Fluticasone Propionate (Flonase Nasal [place] 50mcg*) 2 spray BOTH NARES DAILY PRN Sodium Chloride (Ns 0.9% 1000 Ml*) 1,000 mls @ 200 mls/hr IV PER RATE [facility] Ipratropium [place] (Atrovent 0.5 Mg Neb.Meghan*) 1 mg INH Q6H PRN Metoprolol Succinate (Toprol Xl Tab*) 150 mg PO DAILY [facility] Mycophenolate Mofetil (Cellcept Tab(*)) 500 mg PO BID [facility] Omeprazole (Prilosec Cap*) 20 mg PO DAILY@0730 [facility] Prednisone (Deltasone Tab*) 5 mg PO DAILY [facility] Tamsulosin HCl (Flomax Cap*) 0.4 mg PO QPM [facility] Trimethoprim/Sulfamethoxazole (Bactrim Ds 800/160 Tab*) 1 tab PO MoWeFr@0900 [facility] Valganciclovir (Valcyte (Nf)) 900 mg PO DAILY [facility] Vital Signs Temp Pulse Resp BP Pulse Ox 98.4 F 77 18 132/64 99 05/22/17 10:52 05/22/17 10:52 05/22/17 11:45 05/22/17 10:52 05/22/17 10:52 Oxygen Devices in Use Now: None Appearance: sitting up in bed, NAD Eyes: No Scleral Icterus Ears/Nose/Mouth/Throat: NL Teeth, Lips, Gums, Mucous Membranes Moist Neck: NL Appearance and Movements; NL JVP Respiratory: Symmetrical Chest Expansion and Respiratory Effort, Clear to Auscultation Cardiovascular: NL Sounds; No Murmurs; No JVD, RRR Abdominal: NL Sounds; No Tenderness; No Distention Extremities: No Edema Skin: No Rash or Ulcers Neurological: Alert and Oriented x 3, NL Muscle Strength and Tone Lines/Tubes/Other Access: Clean, Dry and Intact Peripheral IV Nutrition: Taking PO's Result Diagrams: 05/22/17 04:39 05/22/17 04:39 Additional Lab and Data: . 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 - Patient Problems (1) Pleuritic chest pain (2) Giant cell myocarditis (3) HLD (hyperlipidemia) (4) HTN (hypertension) (5) Atrial flutter (6) DVT prophylaxis (7) Full code status Status and Disposition: OBV. Stable to be discharged home. See dictated summary regarding plan for problems outlined above.
--- NOTE | 2017-05-23 07:27 | DS ---
CC: Dr. Elam; Dr. Ware * DISCHARGE SUMMARY: DATE OF ADMISSION: 05/21/17 DATE OF DISCHARGE: 05/22/17 PRIMARY CARE PROVIDER: Dr. Sil Frederick. HOT BOX SPOTTER: Dr. Elam and Dr. Ware at [facility]. ATTENDING PHYSICIAN: Dr. Eriberto Ashley * (report dictated by Rula Diane NP). PRIMARY DIAGNOSIS: Pleuritic chest pain. SECONDARY DIAGNOSES: 1. Chronic kidney disease. 2. History of giant cell myocarditis, now in remission on chronic immunosuppression. 3. Obstructive sleep apnea. 4. Chronic obstructive pulmonary disease. 5. Hypertension. 6. Chronic back pain. 7. Atrial flutter, on apixaban. STUDIES WHILE IN THE HOSPITAL: 1. CT scan of the abdomen and pelvis without contrast, mild parapelvic cyst with nonobstructing calculi in the left kidney. No hydronephrosis is noted. Bilateral common iliac artery aneurysms measuring up to 2.71 cm on the right and 2.3 cm on the left. Several cortical kidney and hepatic cysts are noted. Cardiomegaly with pericardial thickening or small pericardial effusion. Marked prostate enlargement. 2. CTA of the chest on 05/21/17, no evidence of pulmonary embolus is noted. No evidence of thoracic aortic dissection or aneurysm dilatation. Left basilar atelectasis is noted. Multiple hepatic cysts are noted. Cardiomegaly with pericardial effusion and likely pericardial thickening. 3. Transthoracic echocardiogram on 05/22/17, [id number] concentric left ventricular hypertrophy is observed. The estimated ejection fraction is 50% to 55%, closer to 55%. Mild relative apical, lateral, and inferior hypokinesis. Abnormal left ventricular diastolic filling is observed consistent with impaired relaxation. A right ventricle wall thickness is mildly increased. The right atrium is mildly dilated. The left atrium is moderately dilated. The aortic valve leaflets are mildly thickened. There is moderate aortic regurgitation. There is mild mitral regurgitation. There is mild dilatation of the ascending aorta. Similar to the limited study of 12/2016, which reported an EF of 50% to 55%. MEDICATIONS AT THE TIME OF DISCHARGE: New medications: 1. Devens 5/325 one tablet every 6 hours as needed for pain. The following medications are the medications that the patient came in on: 1. Proscar 5 mg oral daily. 2. Fluticasone nasal spray 2 sprays both nares daily as needed. 3. Aspirin 81 mg oral daily. 4. Metronidazole cream. 5. Atrovent inhaler 2 puffs inhaled every 6 hours as needed. 6. Vitamin B12 1000 mcg oral daily. 7. Vitamin C 1000 mg oral daily. 8. Tylenol Extra Strength 500 mg oral every 6 hours as needed. 9. Flomax 0.4 mg oral in the evening. 10. Valcyte 900 mg oral daily. 11. Prednisone 5 mg oral daily. 12. Protonix 40 mg oral daily. 13. CellCept 500 mg oral twice daily. 14. Fluconazole 200 mg oral daily. 15. Cyclosporine 100 mg oral twice daily. 16. Eliquis 5 mg oral twice daily. 17. Toprol-XL 150 mg oral daily. 18. Bactrim DS 1 tablet oral Tuesday, Tuesday, Tuesday. 19. Lasix 20 mg oral daily as needed. 20. Cetirizine 10 mg oral daily. The patient is instructed to discontinue valsartan. HISTORY OF PRESENT ILLNESS AND HOSPITAL COURSE: Mr. Bolaños is a 71-year-old male with a past medical history significant for giant cell myocarditis diagnosed in November 2016 as well as obstructive sleep apnea, COPD, hypertension, hyperlipidemia, who presented to the emergency room on 05/21/17 with a complaint of pleuritic chest pain. The patient met Wells' criteria for evaluation of PE and had a negative D- dimer. Hence initially, CTA of the chest was not pursued. The patient had a normal sed rate, had an elevated CRP and given the location of his chest pain, there was concern for worsening of his giant cell myocarditis. The patient did have adequate GFR for a CTA of his chest, hence he went on to have the scan to definitively rule out pulmonary embolism. Additionally, he had his abdomen and pelvis scan to rule out for kidney stones as this pain was similar to the pain he had back in May. The next day, the patient's pleuritic chest pain significantly improved and he was able to take deep breath. The patient did spend 2 days [address] and has significant back pain. It is likely this pleuritic chest pain could have been referred back pain. The patient had a transthoracic echocardiogram, which showed slightly improved ejection fraction of 55%. I did notify Dr. Ware's office at [facility] and spoke with the nurse practitioner regarding the elevation of CRP and whether or not this could be worsening myocarditis. The nurse practitioner confirmed that the recent biopsy in February 2017 from his right heart cath showed complete resolution of the myocarditis. It is unlikely as he has not had any changes in his immunosuppressive regimen that these symptoms are from that. The echocardiogram also did show a trivial pericardial effusion, but nothing more significant than that. Even with the elevated CRP, the patient did not have a fever nor did he have any leukocytosis. This could be altered in the setting of his high-dose immunosuppressant use. On 05/22/17, the patient's pain had improved and was stable to be discharged home. The patient's creatinine did bump up from 1.4 to 1.6 after the CAT scan and he was given a liter of fluid prior to his departure this afternoon. He will have followup lab work on Tuesday that is regularly scheduled lab work by his physicians up at [place]. Vitals are as follows: Temperature 98.4, heart rate 77, respiratory rate 20, blood pressure 132/64, oxygen saturation 98%. At this point, the patient was stable for discharge. DISCHARGE PLAN: The patient was discharged on a low-salt diet. The patient can have activity as tolerated. The patient's blood pressure was running on the lower side with systolics 90 to 100. For this reason, I have discontinued his Diovan. This can be restarted if the patient's systolic blood pressure goes over 140. As mentioned previously, the patient should have his regularly scheduled lab work this Tuesday to recheck his creatinine. The patient should return to the hospital if he experiences any worsening chest pain or shortness of breath. I have reviewed all these instructions with the patient and he is agreeable to the discharge today. This is a summarized report of a complex medical history and hospital stay. For more details, please see the entire medical record. TIME SPENT: Time for this discharge was 60 minutes, 35 minutes were spent with the patient discussing medications, discharge and followup instructions. CONDITION ON DISCHARGE: Stable. RULA DIANE NP [id number]/[facility] #: [id number] CHANDLER
[2017-05-23] MEDS ORDERED: Sulfamethox/Trimethoprim DS 800/160* TAB PO SCH (09:00)
== END 2017-05-22 16:30 | disposition home or self-care (01) ==
LOC: ED 11:09 → MEDTELE 16:11
PROVIDERS: ADMIT Internal Medicine; ATTEND Internal Medicine
DX: R07.81 Pleurodynia (principal); I12.9 Hypertensive chronic kidney disease with stage 1 through stage 4 chronic kidney disease, or unspecified chronic kidney disease; N18.9 Chronic kidney disease, unspecified; I40.1 Isolated myocarditis; J44.9 Chronic obstructive pulmonary disease, unspecified; I48.92 Unspecified atrial flutter; Z79.01 Long term (current) use of anticoagulants; M54.9 Dorsalgia, unspecified; G89.29 Other chronic pain; G47.33 Obstructive sleep apnea (adult) (pediatric); N40.0 Benign prostatic hyperplasia without lower urinary tract symptoms; F17.210 Nicotine dependence, cigarettes, uncomplicated; R94.31 Abnormal electrocardiogram [ECG] [EKG]; I51.7 Cardiomegaly; Z79.899 Other long term (current) drug therapy; R06.02 Shortness of breath
CPT/HCPCS: 36415; 71010; 71275; 74176; 80048; 80053; 81003; 81015; 83605; 83690; 83735; 83880; 84443; 84484; 85025; 85379; 85610; 85652; 86140; 87040; 87086; 93005; 93306; 96365; 96366; 96375; 99285; A9270-GY; G0378; J1940; J2270; J2405; J3475; J7502; J7512; Q9967

== ENCOUNTER 2018-01-02 09:56 | Day surgery (SDC) | payer MEDICARE ==
[~2018-01-02 09:56] MED LIST: Buffered Lidocaine 0.9% SYRIN* 5 ML/SYR SYRINGE INTRADERM ONE; Dexamethasone IV* 4 MG/ML 1 ML (4 MG) IV SLOW PU ONE; Famotidine IV* 10 MG/ML 2 ML (20 mg) IV ONE; Naloxone* 0.4 MG/ML 1 ML VIAL IV PRN; Ondansetron INJ* 2 MG/ML VIAL IV ONE; PROCHLORPERAZINE INJ 5 MG/ML 2 ML VIAL IV PRN; fentaNYL* 50 MCG/ML 2 ML VIAL (100 MCG VIAL) IV PRN; oxyCODONE/Acetamin 5/325 MG* TAB PO PRN
[2018-01-02] MEDS ORDERED: Morphine VIAL* 10 MG/ML 1 ML VIAL ONE ×2 (09:59→10:54)
[2018-01-02] MEDS ORDERED: Ondansetron INJ* 2 MG/ML VIAL ONE (09:59)
[2018-01-02 10:50] LABS: ABS Basophils 0 10^3/ul (0-0.2); ABS Eosinophils 0 10^3/ul (0-0.6); ABS Lymphocytes 0.4 10^3/ul (1.0-4.8); ABS Monocytes 0.5 10^3/ul (0-0.8); ABS Neutrophils 10.6 10^3/ul (1.5-7.7); ABS Nucleated RBC 0 10^3/ul; Eosinophil % 0.1 % (0-6); Hematocrit 35 % (42-52); Hemoglobin 11.5 g/dl (14.0-18.0); Lymphocyte % 3.3 % (25-47); Mean Corpuscular HGB Conc 33 g/dl (31-36); Mean Corpuscular Hemoglobin 27 pg (27-31); Mean Corpuscular Volume 84 fL (80-94); Nucleated Red Blood Cells % 0; Platelet Count 119 10^3/ul (150-450); Red Cell Distribution Width 15 % (10.5-15); White Blood Count 11.6 10^3/ul (3.5-10.8)
[2018-01-02] MEDS ORDERED: PROCHLORPERAZINE INJ 5 MG/ML 2 ML VIAL ONE (10:54)
[2018-01-02] MEDS ORDERED: KETAMINE HCL* 50 MG/ML 10 ML VIAL ONE (10:56)
[2018-01-02] MEDS ORDERED: fentaNYL* 50 MCG/ML 2 ML VIAL (100 MCG VIAL) ONE (10:56)
[2018-01-02] MEDS ORDERED: Midazolam* 1 MG/ML 5 ML VIAL (5 MG) ONE (10:56)
[2018-01-02] MEDS ORDERED: Famotidine IV* 10 MG/ML 2 ML (20 mg) ONE (10:58)
[2018-01-02 10:59] LABS: INR 1.29 (0.77-1.02)
[2018-01-02] MEDS ORDERED: Dexamethasone IV* 4 MG/ML 1 ML (4 MG) ONE (11:01)
[2018-01-02] MEDS ORDERED: Iohexol 180 (CONTRAST) 10 ML SDV IV ONE (11:15)
[2018-01-02] MEDS ORDERED: cefTRIAXone(*) 2 GM ADDV.VIAL IVPB ONE (11:18)
[2018-01-02] MEDS ORDERED: Propofol* 10 MG/ML 20 ML BTL IV PUSH ONE (11:42)
[2018-01-02] MEDS ORDERED: Lidocaine 2% PF * 5 ML VIAL ONE (11:42)
--- NOTE | 2018-01-02 12:13 | RAD ---
CPT II Codes: G9500 Indication: Left hydronephrosis. Fluoroscopic services provided for referring physician. 5 spot images demonstrates placement of a left ureteral stent. 8 seconds of fluoroscopy was used. IMPRESSION: Fluoroscopic services provided for referring physician for left ureteral stent placement.
[2018-01-02 13:18] VITALS: BP 137/81
--- NOTE | 2018-01-02 14:18 | RAD ---
INDICATION: Stent placement COMPARISON: Retrograde examination same date TECHNIQUE: A single view of the abdomen is submitted. FINDINGS: Bones: There are no acute bony findings. Soft tissues: The soft tissues appear normal. The psoas margins are sharp. Bowel gas pattern: Normal Calcifications: There is bilateral nephrolithiasis. Other: There is a left ureteral stent in expected position. There is mild uncoiling of the proximal aspect of the stent IMPRESSION: Lateral nephrolithiasis. Left ureteral stent.
--- NOTE | 2018-01-02 21:35 | OP ---
CC: Dr. Frederick * DATE OF OPERATION: 01/02/18 - [facility] DATE OF : 47 SURGEON: Brendan Gill MD ANESTHESIOLOGIST: Jose G Haro MD ANESTHESIA: IV sedation with MAC. PRE-OP DIAGNOSES: 1. Left renal colic. 2. Left renal and ureteral calculi. POST-OP DIAGNOSES: 1. Left renal colic. 2. Left renal and ureteral calculi. OPERATIVE PROCEDURE: 1. Cystoscopy. 2. Left retrograde pyelography and placement of left ureteral stent (6-[place]). INDICATION FOR PROCEDURE: Mr. Bolaños is a 72-year-old white male who is a known stone former and who has multiple left renal calculi measuring about 1 cm each. The calculi have been asymptomatic and have been observed because of the patient 's cardiac condition and the fact that he is on anticoagulant. He presented to the office this morning with a 1-day history of left renal colic. He had no fever or chills. Renal ultrasound in the office showed multiple large left renal calculi, left hydronephrosis, and obstructing proximal left ureteral calculi, there were no ureteral jets noted from the left ureteral orifice. The patient was in severe pain and was nauseated and vomiting. He is taken to the operating room on an urgent basis for left ureteral stent placement in preparation for definitive treatment of the stones. PATHOLOGY AT CYSTOSCOPY: The penile and bulbar urethrae looked normal. The prostatic urethra measured 4 cm in length and there was significant degree of obstruction by trilobar hyperplasia of the prostate. Examination of the bladder showed a few small crystals floating in the bladder. Moderate degree of trabeculations were noted. No suspicious bladder lesions were seen. At fluoroscopy, calcifications were noted at the level of the UPJ and in the area of the left kidney. Hydronephrotic drip of clear urine was noted following drainage of the left kidney. DESCRIPTION OF PROCEDURE: With the patient in the dorsal lithotomy position and under intravenous sedation and anesthesia monitoring, the patient was prepped and draped for a cystoscopy. Cystoscopy was performed. The bladder was inspected and the above findings were noted. A flexible-tip hybrid guidewire was then introduced inside the left orifice and positioned in the area of the left renal pelvis. A size 5-[place] open-ended catheter was fed on top of the guidewire and positioned in the renal pelvis. Hydronephrotic drip was noted. A small amount of contrast was given just to delineate the collecting system. A 6-[place] stent was then placed with the proximal end coiling in the collecting system and the distal end coiling inside the bladder. There was good drainage of contrast from the kidney and no extravasation. A 16-[place] Feng catheter was placed. The patient tolerated the procedure well and left the operating room in good condition. The plan is to obtain a KUB before the patient's discharge. Decision will be made regarding the definitive treatment of the stones. [id number]/[facility] #: [id number] [facility]
== END 2018-01-02 14:00 | disposition home or self-care (01) ==
LOC: OR 09:56
PROVIDERS: ATTEND Urology
DX: N20.2 Calculus of kidney with calculus of ureter (principal); N40.1 Benign prostatic hyperplasia with lower urinary tract symptoms; N13.8 Other obstructive and reflux uropathy; Z79.01 Long term (current) use of anticoagulants; I42.8 Other cardiomyopathies; I51.4 Myocarditis, unspecified; I25.2 Old myocardial infarction; Z95.810 Presence of automatic (implantable) cardiac defibrillator; I10 Essential (primary) hypertension; E78.5 Hyperlipidemia, unspecified; Z87.891 Personal history of nicotine dependence
CPT/HCPCS: 36415; 74018; 74420; 80048; 85025; 85610; 85730; 93005; C1876; J0696; J0780; J1100; J2250; J2270; J2405; J2704; J3010

== ENCOUNTER 2018-02-03 06:30 | Day surgery (SDC) | payer MEDICARE ==
--- NOTE | 2018-01-26 03:46 | HP ---
CC: Dr. Frederick * HISTORY AND PHYSICAL: DATE OF PLANNED ADMISSION AND SURGERY: 02/03/18 HISTORY OF PRESENT ILLNESS: Mr. Bolaños is a 72-year-old white male who is admitted with left renal calculi, status post placement of left ureteral stent for cystoscopy, left ureteroscopy and pyeloscopy, laser lithotripsy and left ureteral stent exchange. Please refer to the detailed medical history and physical dictated by Dr. Laureano Elam, his power nut runner operator, dated 01/17/18 and enclosed in the patient's record. Mr. Bolaños's urological history goes back to 2 years ago when he was noted to have left renal calculi. The calculi were uric acid in composition. In May 2016, he underwent left ureteroscopy, laser lithotripsy, and stent placement. On follow-up visits, he was noted to have enlarging but asymptomatic non- obstructing left renal calculi. Because of his cardiac disease and the fact that he was on anticoagulation, he was placed on allopurinol and managed conservatively. In October 2017, he presented with recurrent episodes of gross painless hematuria. At that time, he was on anticoagulation with Eliquis. Cystoscopy showed a prostate enlargement, but no suspicious bladder lesions were seen. He had a CT of the abdomen and pelvis, which showed several left renal calculi, probably the cause of the gross hematuria On 01/02/18, he presented with acute left flank pain and was noted to have obstructing proximal left ureteral calculi. He was taken to the operating room on an urgent basis and had a placement of left ureteral stent. He did well postoperatively. He is now admitted for left ureteroscopy and treatment of the left renal calculi. His past history is relevant for prostate enlargement and bladder outlet obstruction and an elevated PSA. He had several prostate biopsies in the past, all of them were negative. He has been maintained on finasteride with improvement in his voiding. His PSA has been stable at the vicinity of 7. His cardiac history and his medical history are detailed in Dr. Elam's note. Dr. Elam evaluated him preoperatively and cleared him up for the present procedure. He is still maintained on anticoagulation with Eliquis and the plan is to continue with through the during the procedure. Considering the stone burden in his left kidney, the plan is to try to fragment as much as many of the stones as possible. He will be maintained on allopurinol and on urinary alkalinization with potassium citrate. Hopefully that would help dissolve his uric acid calculi. He might require more than 1 procedure to clear his left kidney stones. I discussed the above plans in detail with the patient. All his questions were answered. [id number]/[facility] #: [id number] [facility]ER
[~2018-02-03 06:30] MED LIST changes: -Naloxone* 0.4 MG/ML 1 ML VIAL IV PRN; -Ondansetron INJ* 2 MG/ML VIAL IV ONE; -PROCHLORPERAZINE INJ 5 MG/ML 2 ML VIAL IV PRN; -fentaNYL* 50 MCG/ML 2 ML VIAL (100 MCG VIAL) IV PRN; -oxyCODONE/Acetamin 5/325 MG* TAB PO PRN
[2018-02-03] MEDS ORDERED: cefTRIAXone(*) 2 GM ADDV.VIAL IVPB ONE (06:43)
[2018-02-03] MEDS ORDERED: Famotidine IV* 10 MG/ML 2 ML (20 mg) ONE (06:43)
[2018-02-03] MEDS ORDERED: Dexamethasone IV* 4 MG/ML 1 ML (4 MG) ONE (06:43)
[2018-02-03] MEDS ORDERED: Iohexol 180 (CONTRAST) 10 ML SDV IV ONE (08:12)
[2018-02-03] MEDS ORDERED: fentaNYL* 50 MCG/ML 2 ML VIAL (100 MCG VIAL) ONE (08:17)
[2018-02-03] MEDS ORDERED: Propofol* 10 MG/ML 20 ML BTL IV PUSH ONE (08:17)
[2018-02-03] MEDS ORDERED: Lidocaine 2% PF * 5 ML VIAL ONE (08:50)
[2018-02-03] MEDS ORDERED: Ondansetron INJ* 2 MG/ML VIAL ONE (08:50)
[2018-02-03] MEDS ORDERED: Phenylephrine INJ* 10 MG/ML 1 ML VIAL (10 MG) ONE (08:50)
[2018-02-03 09:42] VITALS: BP 154/86
[2018-02-03] MEDS ORDERED: Naloxone* 0.4 MG/ML 1 ML VIAL IV PRN (09:50)
--- NOTE | 2018-02-03 10:20 | RAD ---
INDICATION: Left ureteral stent exchange COMPARISONS: January 05, 2018 TECHNIQUE: Fluoroscopy was provided for a retrograde pyelogram and stent placement. Total fluoroscopy time is: 11 seconds FINDINGS: Spot images demonstrate contrast within the renal collecting system with filling defects consistent with calculi. A ureteral stent is noted. IMPRESSION: FLUOROSCOPY WAS PROVIDED FOR A RETROGRADE PYELOGRAM AND STENT PLACEMENT CPT II Codes: G9500
--- NOTE | 2018-02-03 12:16 | OP ---
CC: Dr. Frederick * DATE OF OPERATION: 02/03/18 - [facility] DATE OF : 47 SURGEON: Brendan Gill MD ANESTHESIOLOGIST: Cuauhtemoc Fong MD ANESTHESIA: General. PRE-OP DIAGNOSES: 1. Left renal and ureteral calculi. 2. Status post placement of left ureteral stent. POST-OP DIAGNOSES: 1. Left renal and ureteral calculi. 2. Status post placement of left ureteral stent. OPERATIVE PROCEDURE: 1. Cystoscopy. 2. Left ureteroscopy and extraction of proximal left ureteral calculus. 3. Left retrograde pyelography and left ureteral stent exchange (Black Silicone , 26 cm, 7-Maltese). INDICATIONS: Mr. Bolaños is a 72-year-old white male who is known to have uric acid left renal calculi and had been asymptomatic and managed conservatively. One month ago, he presented with an acute onset of left renal colic and at that time, he was found to have a proximal left ureteral calculus and several left renal calculi measuring about 1 centimeter or less in size. The patient was taken to the operating room on an urgent basis and had placement of left ureteral stent. He was started on potassium citrate. His uric acid last year was normal at 4.7. He was not placed on allopurinol. The patient is now admitted for left ureteroscopy and extraction of the ureteral calculus and possible left pyeloscopy and laser lithotripsy. PATHOLOGY AT CYSTOSCOPY: The penile and bulbar urethrae looked normal. The prostatic urethra measured about 3 cm in length and with significant degree of obstruction by prostate enlargement. Examination of the bladder showed the distal limb of the stent coming from the left orifice. No bladder lesions were seen. There was moderate degree of diffuse trabeculations. The right ureteral orifice looked normal. Upon left ureteroscopy, an 6-7-mm calculus was noted in the proximal left ureter just distal to the ureteropelvic junction. The calculus was yellowish in color, had the gross appearance of a uric acid stone. Retrograde pyelography showed no hydronephrosis. Left pyeloscopy showed no calculi in the renal pelvis. DESCRIPTION OF PROCEDURE: After the successful general anesthesia, the patient was placed in the lithotomy position and was prepped and draped for cystoscopy. Cystoscopy was performed. The distal limb of the left ureteral stent was pulled out to the level of the urethral meatus. A flexible tip guidewire was introduced into the lumen of the stent and positioned in the area of the renal pelvis and the stent was removed keeping the guidewire in place. A size 6.5 semirigid ureteroscope was then introduced inside the bladder. A flexible-tip basket was introduced in the port of the ureteroscope and its flexible tip was introduced into the left ureter alongside the guidewire. That allowed the atraumatic introduction of the ureteroscope into the ureter. The ureter was nicely dilated from the previously placed stent, and the ureteroscope was introduced without difficulty all the way up into the proximal ureter. At that level, the calculus was identified. It was engaged with a basket and gently extracted. There was no resistance due to the passive dilation of the ureter and the stone was removed and dropped inside the bladder. The ureteroscope was reintroduced inside the ureter. No other ureteral calculi were seen. The ureteroscope was then introduced into the renal pelvis and no calculi were visualized. Judging from the CT scan, the calculi that were noted in the left kidney were calyceal. Retrograde pyelography done through the ureteroscope showed no dilatation of the renal pelvis, normal infundibuli, and a dilated upper pole calyceal system. The ureteroscope was then removed keeping the guidewire in place. A Black Silicone stent, 26-cm long, 7-Maltese was then fed over the guidewire and positioned with the proximal end coiling in the dilated upper pole calyceal system and distal end coiling inside the bladder. There was good drainage of contrast from the kidney and no extravasation. The ureteral calculus that was extracted and dropped inside the bladder could not be extracted in spite of irrigation and I expect the patient should be able to pass it spontaneously. A size 16-Maltese Feng catheter was passed inside the bladder and the balloon inflated with 10 cc of water. The patient tolerated the procedure well and left the operating room in good condition. The plan at this time is to keep the patient on the urinary alkalinization with potassium citrate. The CT will be repeated in a month to evaluate the size of the stone and decide on any additional treatment. [id number]/[facility] #: [id number] MTDD
== END 2018-02-03 10:40 | disposition home or self-care (01) ==
LOC: OR 06:30
PROVIDERS: ATTEND Urology
DX: N20.2 Calculus of kidney with calculus of ureter (principal); R31.0 Gross hematuria; Z95.810 Presence of automatic (implantable) cardiac defibrillator; Z79.01 Long term (current) use of anticoagulants; G47.33 Obstructive sleep apnea (adult) (pediatric); J44.9 Chronic obstructive pulmonary disease, unspecified; N40.0 Benign prostatic hyperplasia without lower urinary tract symptoms
CPT/HCPCS: 74420; C1876; J0696; J1100; J2405; J2704; J3010

== ENCOUNTER 2018-09-15 09:37 | Day surgery (SDC) | payer MEDICARE ==
--- NOTE | 2018-09-07 19:11 | HP ---
CC: Dr. Sil Frederick * HISTORY AND PHYSICAL: DATE OF PLANNED ADMISSION AND SURGERY: 09/15/18 HISTORY OF PRESENT ILLNESS: Mr. Bolaños is a 72-year-old white male, who is admitted with a left proximal ureteral calculus, status post placement of left ureteral stent for cystoscopy, left ureteroscopy, laser lithotripsy, and left ureteral stent exchange. Mr. Bolaños is a known stone former having uric acid nephrolithiasis. In January 2018, he had left ureteroscopy, stone extraction, and stent placement. Because he had residual left renal calculi, he was placed on urinary alkalinization to dissolve the residual calculi. About 2-1/2 months ago, he presented with an episode of urosepsis and was noted to have a partial obstruction of the left ureteral stent. Dr. Calle took him to the operating room and had a left ureteral stent exchange with resolution of his symptoms. He had continued to be maintained on urinary alkalinization with potassium citrate. The patient had a recent CT of the abdomen and pelvis, which showed the left ureteral stent in good position and 6 to 7 mm calculus in the proximal left ureter adjacent to the stent. There was another 6 to 7 mm calculus in the lower pole calyx of the left kidney. No other calculi were seen. The patient now is admitted for treatment of the left ureteral calculus. PAST MEDICAL HISTORY AND SYSTEM REVIEW: The patient has giant cell myocarditis , PVCs, hyperlipidemia, hypertension, and has a pacemaker defibrillator. He has been also on anticoagulation with Eliquis. He is followed by Dr. Elam, his sports intern. He has done well and his ejection fraction has been good and he had cleared him up for the previous operative procedures. The patient also has history of a prostate enlargement and bladder outlet obstruction and is on treatment. MEDICATIONS: He is maintained on: 1. Finasteride 5 mg daily. 2. Tamsulosin 0.4 mg daily. 3. 1 baby aspirin per day. 4. Protonix 40 mg daily. 5. Fluconazole 200 mg daily. 6. Eliquis 5 mg twice a day. 7. Metoprolol 100 mg daily. 8. Sertraline 100 mg daily. 9. Potassium citrate 20 mEq 3 times per day. 10. Magnesium oxide 250 mg daily. 11. Spiriva 2 puffs twice daily as needed. 12. Sapulpa 5/325 one tablet every 8 hours as needed for his chronic back pain. 13. He was on prednisone, which was discontinued. ALLERGIES: The patient reports having intolerance or allergy to LISINOPRIL, ZOCOR, and PRAVASTATIN. FAMILY HISTORY: Relevant for cancer in his family. PERSONAL HISTORY: He is retired. He was a chronic smoker and he stopped in 2002. He never used drugs. PHYSICAL EXAMINATION GENERAL: A pleasant white male, who looks his age and who is in no acute state. VITAL SIGNS: Blood pressure 110/60, pulse of 64. LUNGS: Clear. HEART: Regular and rhythmic. No murmurs. ABDOMEN: Soft. No masses. No tenderness and no CVA tenderness. EXTERNAL GENITALIA: Normal. EXTREMITIES: Normal. IMPRESSION: 1. Uric acid nephrolithiasis, status post placement of left ureteral stent. 2. Proximal left ureteral calculus. 3. Giant cell myocarditis, premature ventricular contractions, hypertension. 4. Status post AICD placement. 5. Anticoagulation with Eliquis. PLAN: The plan is for cystoscopy, left ureteroscopy, laser lithotripsy, and left ureteral stent exchange. The plan is to do the procedure while he is on full anticoagulation. I discussed the above plans with the patient. All his questions were answered. [id number]/[facility] #: [id number] [facility]
[~2018-09-15 09:37] MED LIST changes: -Buffered Lidocaine 0.9% SYRIN* 5 ML/SYR SYRINGE INTRADERM ONE; +Buffered Lidocaine 1% SYRIN* 1 ML/SYRINGE INTRADERM ONE; -Dexamethasone IV* 4 MG/ML 1 ML (4 MG) IV SLOW PU ONE; -Famotidine IV* 10 MG/ML 2 ML (20 mg) IV ONE; +Lactated Ringers 1000 ML Bag* 1,000 ML IV SCH; +cefTRIAXone(*) 2 GM in NS 0.9% 100 ML* 100 ML IVPB ONE
[2018-09-15] MEDS ORDERED: cefTRIAXone(*) 2 GM ADDV.VIAL IVPB ONE (09:59)
[2018-09-15] MEDS ORDERED: Iohexol 180 (CONTRAST) 10 ML SDV IV ONE (12:22)
[2018-09-15] MEDS ORDERED: oxyCODONE/Acetamin 5/325 MG* TAB PO PRN (12:46)
[2018-09-15] MEDS ORDERED: Acetaminophen TAB* 325 MG PO PRN (12:46)
[2018-09-15] MEDS ORDERED: DiMENhydriNATE IV* 50 MG/ML VIAL IV PUSH PRN (12:46)
[2018-09-15] MEDS ORDERED: Naloxone* 0.4 MG/ML 1 ML VIAL IV PRN (12:46)
[2018-09-15] MEDS ORDERED: fentaNYL* 50 MCG/ML 2 ML VIAL (100 MCG VIAL) ONE ×3 (12:55→14:48)
[2018-09-15] MEDS ORDERED: VASOPRESSIN 20 UNITS/ML 1 ML VIAL ONE (13:21)
[2018-09-15] MEDS ORDERED: EPHEDrine (Pressors)* 50 MG/ML VIAL ONE (13:21)
[2018-09-15] MEDS ORDERED: Lidocaine 2% PF * 5 ML VIAL ONE (13:21)
[2018-09-15] MEDS ORDERED: Phenylephrine 40 MCG/ML SYRINGE ONE (13:29)
[2018-09-15] MEDS ORDERED: Propofol* 10 MG/ML 20 ML BTL ONE (13:29)
[2018-09-15] MEDS: fentaNYL* 50 MCG/ML 2 ML VIAL (100 MCG VIAL) IV PRN ×4 (14:49→15:18)
[2018-09-15] MEDS ORDERED: Ondansetron INJ* 2 MG/ML VIAL ONE (14:50)
[2018-09-15] MEDS ORDERED: DiMENhydriNATE IV* 50 MG/ML VIAL ONE (15:00)
[2018-09-15] MEDS ORDERED: HYDROmorphone INJ* 0.5 MG/0.5 ML SYRINGE IV SLOW PU ONE (15:18)
[2018-09-15] MEDS ORDERED: PROCHLORPERAZINE INJ 5 MG/ML 2 ML VIAL IV ONE (15:19)
[2018-09-15] MEDS ORDERED: HYDROmorphone INJ1* 1 MG/ML SYRINGE ONE (15:20)
[2018-09-15] MEDS ORDERED: HYDROmorphone INJ1* 1 MG/ML SYRINGE IV ONE (15:21)
[2018-09-15] MEDS ORDERED: oxyCODONE/Acetamin 5/325 MG* TAB ONE (15:56)
[2018-09-15] MEDS ORDERED: Acetaminophen TAB* 325 MG ONE (15:57)
[2018-09-15 18:14] VITALS: BP 136/73
--- NOTE | 2018-09-16 01:20 | OP ---
CC: Dr. Frederick OPERATIVE REPORT: DATE OF OPERATION: 09/15/18 DATE OF : 47 SURGEON: Brendan Gill MD ANESTHESIOLOGIST: Dr. Coronado. ANESTHESIA: General. PRE-OP DIAGNOSES: 1. Proximal left ureteral calculus. 2. Status post placement of left ureteral stent. POST-OP DIAGNOSES: 1. Proximal left ureteral calculus. 2. Status post placement of left ureteral stent. OPERATIVE PROCEDURE: 1. Cystoscopy. 2. Left ureteroscopy, laser lithotripsy and extraction of left ureteral calculus. 3. Left retrograde pyelography and left ureteral stent exchange (7-Namibian). INDICATION FOR PROCEDURE: Mr. Bolaños is a 72-year-old white male who had uric acid left nephrolithiasis and has been on stent drainage and on urinary alkalinization to help dissolve the uric acid calculi. He had a recent CT, which showed the left ureteral stent in good position and a 7 mm calculus in the proximal left ureter adjacent to the stent. There was another small calculus in the lower pole calyx of the left kidney. The patient is admitted for treatment of the left ureteral calculus. The patient has prostate enlargement on treatment and he is on anticoagulation, which has been maintained with the procedure. PATHOLOGY: At cystoscopy, the penile and bulbar urethra looked normal. The prostatic urethra measured about 3.5 cm in length and there was significant degree of enlargement and obstruction of the prostate with an elevated median lobe. Examination of the bladder showed the distal limb of the stent coming out from the left ureteral orifice. Moderate degree of bladder trabeculations were noted. No calculi or diverticula were seen. At fluoroscopy, the calculus could not be clearly seen in the proximal ureter. Upon left ureteroscopy, the calculus was visualized in the proximal left ureter just distal to the ureteropelvic junction. The calculus was grayish in color. DESCRIPTION OF PROCEDURE: After successful general anesthesia, the patient was placed in the lithotomy position and was prepped and draped for cystoscopy. Cystoscopy was performed. The bladder was inspected and the above findings were noted. The distal limb of the left ureteral stent was pulled out to the level of the urethral meatus. A flexible-tip guidewire was then introduced into the lumen of the stent and positioned in the area of the renal pelvis and the stent was removed. A size 6.5 semirigid ureteroscope was then introduced inside the bladder under direct vision. A flexible-tip basket was introduced into the port of the ureteroscope and the flexible-tip was passed inside the left ureteral orifice alongside the guidewire. That allowed the atraumatic introduction of the ureteroscope inside the ureter. The ureter was nicely dilated from the chronic stent and the ureteroscope was introduced without difficulty or trauma into the proximal ureter where the calculus was identified. The stone basket was then introduced beyond the stone and was deployed and the stone was partially engaged to avoid its proximal migration through the lithotripsy. A size 550 micron laser fiber was then introduced into the other port of the ureteroscope and the calculus was then broken into multiple fragments using the laser energy. The larger stone fragment measuring about 4 or 5 mm was then extracted and sent for stone analysis. The smaller fragments were also partially extracted and sent for analysis. Final inspection of the ureter showed the expected hyperemia from the impaction of the stone, but there was no evidence of any perforation. Retrograde pyelography was then performed showing no extravasation at the site of the ureteroscopy. A size 7-N[place]ibian stent was then placed with the proximal end coiling in the renal pelvis and the distal end coiling inside the bladder. A 16-[place]ib[place] Feng catheter was then placed. The patient tolerated the procedure well and left the operating room in good condition. The plan is to leave the stent in place for about 2 weeks; it will be removed in the office under local anesthesia. [id number]/[facility] #: [id number] MTDD
== END 2018-09-15 19:04 | disposition home or self-care (01) ==
LOC: OR 09:37
PROVIDERS: ATTEND Urology
DX: N20.0 Calculus of kidney (principal); N20.1 Calculus of ureter; I40.1 Isolated myocarditis; I49.3 Ventricular premature depolarization; E78.5 Hyperlipidemia, unspecified; I10 Essential (primary) hypertension; Z79.82 Long term (current) use of aspirin; Z88.8 Allergy status to other drugs, medicaments and biological substances; Z87.891 Personal history of nicotine dependence; Z95.810 Presence of automatic (implantable) cardiac defibrillator
CPT/HCPCS: 74420; 82365; 88300; A9270-GY; C1876; J0696; J1170; J1240; J2405; J2704; J3010